=== PATIENT | female | born 1995 | race African-American/Black ===

== ENCOUNTER 2018-12-29 16:20 | Inpatient (IN) | payer OTHER ==
[~2018-12-29] VITALS: Ht 162.6 cm; Wt 58.3 kg
[2018-12-29 18:52] VITALS: BP 120/79; PULSE 72; RESP 18
[2018-12-29] MEDS ORDERED: NACL 0.9% 3 ML SYG IV SCH (19:00)
[2018-12-29 19:01] VITALS: BMI 18.9
[2018-12-29] MEDS: morphine 4 MG/ML VIAL IV PRN ×2 (19:05→21:59)
[2018-12-29 19:37] VITALS: BP 137/66; PULSE 75; RESP 16
[2018-12-29] MEDS: ALBUTEROL/IPRATROPIUM (NEB) 3 ML AMP HHN SCH (20:37)
[2018-12-29] MEDS: SOD CHLORIDE 0.9% 1,000 ML IV SCH (21:58)
[2018-12-29 22:00] VITALS: Ht 162.6 cm; Wt 58.3 kg
[2018-12-29] MEDS: HEPARIN 5,000 UNIT/1 ML VIAL SC SCH (22:04)
--- NOTE | 2018-12-29 22:11 | HP ---
Date/Time of Note Date/Time of Note DATE: 12/29/18 TIME: 22:11 Assessment/Plan VTE Prophylaxis SCD applied (from Ns): Yes Pharmacological prophylaxis: NA/contraindicated Pharm contraindication: low risk/ambulating Assessment/Plan Assessment/Plan 1. Sickle cell crisis -Pain management, IV fluid -Hemoglobin 11, therefore no transfusion needed -Patient reported that she follows up with a greens picker at [place] 2. History of asthma: No sign of exacerbation -Supplemental oxygen and bronchodilators as needed 3. Anemia: See #1 Result Diagram: 12/29/18 1852 12/29/18 1853 Results 24hrs Laboratory Tests Test 12/29/18 18:52 12/29/18 18:53 White Blood Count 4.5 L Red Blood Count 4.18 L Hemoglobin 11.1 L Hematocrit 30.7 L Mean Corpuscular Volume 73.4 L Mean Corpuscular Hemoglobin 26.6 L Mean Corpuscular Hemoglobin Concent 36.2 Red Cell Distribution Width 14.8 H Platelet Count 189 Mean Platelet Volume 9.2 Immature Granulocytes % 0.200 Neutrophils % 50.4 Lymphocytes % 39.6 Monocytes % 7.6 Eosinophils % 2.0 Basophils % 0.2 Nucleated Red Blood Cells % 0.0 Immature Granulocytes # 0.010 Neutrophils # 2.3 Lymphocytes # 1.8 Monocytes # 0.3 Eosinophils # 0.1 Basophils # 0.0 Nucleated Red Blood Cells # 0.0 Sodium Level 141 Potassium Level 3.9 Chloride Level 105 Carbon Dioxide Level 27 Anion Gap 9 Blood Urea Nitrogen 3 L Creatinine 0.48 Est Glomerular Filtrat Rate mL/min > 60 Glucose Level 89 Calcium Level 9.4 Total Bilirubin 1.1 Direct Bilirubin 0.00 Indirect Bilirubin 1.1 Aspartate Amino Transf (AST/SGOT) 24 Alanine Aminotransferase (ALT/SGPT) 18 Alkaline Phosphatase 71 Total Protein 7.3 Albumin 4.1 Globulin 3.20 Albumin/Globulin Ratio 1.28 HPI/ROS Admit Date/Time Admit Date/Time Dec 29, 2018 at 18:08 Hx of Present Illness This is a 23-year-old female with a history of sickle cell disease and asthma who initially presented to outside hospital complaining of generalized body pain. She said the pain is similar to when she has crisis. Pain is generalized and not specific to any part. When I walked into the room, she was talking to her mom on the phone and she looks comfortable. She did however state that she is still having pain. She states she follows up with the hematology at [place]. She was transferred to [facility] for management of sickle cell crisis. PMH/Family/Social Past Medical History Medical History: other (See HPI) Medications Current Medications Sodium Chloride 1,000 ml @ 50 mls/hr Q20H IV ; Start 12/29/18 at 18:37 IV Flush (NS 3 ml) 3 ml PER PROTOCOL IV ; Start 12/29/18 at 19:00 Ondansetron HCl (Zofran Inj) 4 mg Q6H PRN IV NAUSEA/VOMITING; Start 12/29/18 at 19:00 Acetaminophen (Tylenol Tab) 650 mg Q6H PRN PO .PAIN 1-3 OR TEMP; Start 12/29/18 at 19:00 Oxycodone/ Acetaminophen (Percocet (5/ 325)) 1 tab Q6H PRN PO .PAINS 4-6; Start 12/29/18 at 19:00 Morphine Sulfate (morphine) 4 mg Q3H PRN IV .PAIN 7-10 Last administered on 12/29/18at 19:05; Admin Dose 4 MG; Start 12/29/18 at 19:00 Albuterol/ Ipratropium (Duoneb) 3 ml Q2H RESP THERAPY PRN HHN shortness of breath; Start 12/29/18 at 19:00 Albuterol/ Ipratropium (Duoneb) 3 ml Q6HWA RESP THERAPY HHN Last administered on 12/29/18at 20:37; Admin Dose 3 ML; Start 12/29/18 at 20:00 Heparin Sodium (Porcine) (Heparin (5000 Units/1ml)) 5,000 unit Q8 SC ; Start 12/29/18 at 22:00 Coded Allergies: No Known Allergy (Unverified , 12/29/18) Past Surgical History Past Surgical Hx: other (See HPI) Family History Significant Family History: other Social History Alcohol Use: none Drug Use: none Exam/Review of Systems Vital Signs Vitals Vital Signs Date Temp Pulse Resp B/P (MAP) Pulse Ox O2 O2 Flow FiO2 Time Delivery Rate 12/29/18 67 16 99 Nasal 2.0 20:41 Cannula 12/29/18 98.5 137/66 19:37 (89) Exam Constitutional: alert, oriented, well developed Head: normocephalic, atraumatic Eyes: EOMI, PERRL Respiratory: clear to auscultation, normal air movement Cardiovascular: regular rate and rhythm, nl pulses Gastrointestinal: soft Extremities: normal pulses DANIEL BILL MD Dec 29, 2018 22:11
[2018-12-30] MEDS: morphine 4 MG/ML VIAL IV PRN ×7 (01:04→23:10)
[2018-12-30 01:48] VITALS: BP 114/67; PULSE 65; RESP 16
[2018-12-30] MEDS: ACETAMINOPHEN 325 MG TAB PO PRN (04:26)
[2018-12-30] MEDS: HEPARIN 5,000 UNIT/1 ML VIAL SC SCH ×3 (05:58→23:12)
[2018-12-30] MEDS: OXYCODONE/ACETAMINOPHEN (5/325) TAB PO PRN (06:08)
[2018-12-30] MEDS: ALBUTEROL/IPRATROPIUM (NEB) 3 ML AMP HHN SCH ×3 (07:42→21:42)
[2018-12-30 08:29] VITALS: BP 116/66; PULSE 80; RESP 18
[2018-12-30] MEDS: ONDANSETRON 4 MG INJ IV PRN ×2 (09:26→16:15)
[2018-12-30] MEDS: SOD CHLORIDE 0.9% 1,000 ML IV SCH ×3 (12:57→23:10)
[2018-12-30 15:02] VITALS: BP 105/71; PULSE 72; RESP 18
--- NOTE | 2018-12-30 15:08 | PN ---
Date/Time of Note Date/Time of Note DATE: 12/30/18 TIME: 15:04 Assessment/Plan VTE Prophylaxis Risk score (from Ns)>0 risk: 1 SCD applied (from [facility]): Yes Pharmacological prophylaxis: heparin Lines/Catheters IV Catheter Type (from Nrsg): Peripheral IV Assessment/Plan Assessment/Plan 1. Sickle cell crisis, IVF, O2, pain control 2. Asthma: No sign of exacerbation 3. DVT prophylaxis: heparin SQ Result Diagram: 12/30/18 0435 12/30/18 0435 Results 24hrs Laboratory Tests Test 12/29/18 18:52 12/29/18 18:53 12/30/18 04:35 White Blood Count 4.5 L 4.2 L Red Blood Count 4.18 L 3.94 L Hemoglobin 11.1 L 10.3 L Hematocrit 30.7 L 29.0 L Mean Corpuscular Volume 73.4 L 73.6 L Mean Corpuscular Hemoglobin 26.6 L 26.1 L Mean Corpuscular Hemoglobin Concent 36.2 35.5 Red Cell Distribution Width 14.8 H 14.8 H Platelet Count 189 183 Mean Platelet Volume 9.2 9.5 Immature Granulocytes % 0.200 0.200 Neutrophils % 50.4 37.1 L Lymphocytes % 39.6 51.9 H Monocytes % 7.6 8.6 Eosinophils % 2.0 1.7 Basophils % 0.2 0.5 Nucleated Red Blood Cells % 0.0 0.0 Immature Granulocytes # 0.010 0.010 Neutrophils # 2.3 1.6 Lymphocytes # 1.8 2.2 Monocytes # 0.3 0.4 Eosinophils # 0.1 0.1 Basophils # 0.0 0.0 Nucleated Red Blood Cells # 0.0 0.0 Sodium Level 141 142 Potassium Level 3.9 3.6 Chloride Level 105 102 Carbon Dioxide Level 27 29 Anion Gap 9 11 Blood Urea Nitrogen 3 L 4 L Creatinine 0.48 0.50 Est Glomerular Filtrat Rate mL/min > 60 > 60 Glucose Level 89 91 Calcium Level 9.4 8.9 Total Bilirubin 1.1 1.0 Direct Bilirubin 0.00 0.00 Indirect Bilirubin 1.1 1.0 Aspartate Amino Transf (AST/SGOT) 24 16 Alanine Aminotransferase (ALT/SGPT) 18 18 Alkaline Phosphatase 71 57 Total Protein 7.3 6.8 Albumin 4.1 3.9 Globulin 3.20 2.90 Albumin/Globulin Ratio 1.28 1.34 Hemoglobin A1c 4.2 Magnesium Level 1.7 Subjective 24 Hr Interval Summary Free Text/Dictation generalized pain, no shortness of breath Exam/Review of Systems Exam Vitals Vital Signs Date Temp Pulse Resp B/P (MAP) Pulse Ox O2 O2 Flow FiO2 Time Delivery Rate 12/30/18 2.0 14:08 12/30/18 72 16 100 Nasal 14:08 Cannula 12/30/18 98.0 116/66 08:29 (83) Intake and Output 12/29/18 12/29/18 12/30/18 1515:00 23:00 07:00 IntakeIntake Total 830 ml BalanceBalance 830 ml Constitutional: alert, oriented, well developed Psych: no complaints, nl mood/affect Head: normocephalic, atraumatic Eyes: nl conjunctiva, EOMI, nl lids ENMT: nl external ears & nose, nl lips & teeth, nl nasal mucosa & septum Neck: supple, non-tender Respiratory: clear to auscultation, normal air movement; No congested cough, No crackles/rales, No diminished breath sounds, No intercostal retraction, No labored breathing, No respirations, No tactile fremitus, No wheezing, No other Cardiovascular: regular rate and rhythm, nl pulses; No bruits, No diastolic murmur, No edema, No gallop, No irregular rhythm, No jugular venous distention (JVD), No murmurs/extra sounds, No rub, No systolic murmur, No S3, No S4, No other Gastrointestinal: soft, nl liver, spleen, non-tender Musculoskeletal: nl extremities to inspection Extremities: normal pulses; No calf tenderness, No cyanosis, No clubbing, No edema, No pitting pedal edema, No palpable cord, No tenderness, No other Neurological: [employer] II-XII intact, nl mental status, nl speech, nl strength Skin: nl turgor Results Results 24hrs Laboratory Tests Test 12/29/18 18:52 12/29/18 18:53 12/30/18 04:35 White Blood Count 4.5 L 4.2 L Red Blood Count 4.18 L 3.94 L Hemoglobin 11.1 L 10.3 L Hematocrit 30.7 L 29.0 L Mean Corpuscular Volume 73.4 L 73.6 L Mean Corpuscular Hemoglobin 26.6 L 26.1 L Mean Corpuscular Hemoglobin Concent 36.2 35.5 Red Cell Distribution Width 14.8 H 14.8 H Platelet Count 189 183 Mean Platelet Volume 9.2 9.5 Immature Granulocytes % 0.200 0.200 Neutrophils % 50.4 37.1 L Lymphocytes % 39.6 51.9 H Monocytes % 7.6 8.6 Eosinophils % 2.0 1.7 Basophils % 0.2 0.5 Nucleated Red Blood Cells % 0.0 0.0 Immature Granulocytes # 0.010 0.010 Neutrophils # 2.3 1.6 Lymphocytes # 1.8 2.2 Monocytes # 0.3 0.4 Eosinophils # 0.1 0.1 Basophils # 0.0 0.0 Nucleated Red Blood Cells # 0.0 0.0 Sodium Level 141 142 Potassium Level 3.9 3.6 Chloride Level 105 102 Carbon Dioxide Level 27 29 Anion Gap 9 11 Blood Urea Nitrogen 3 L 4 L Creatinine 0.48 0.50 Est Glomerular Filtrat Rate mL/min > 60 > 60 Glucose Level 89 91 Calcium Level 9.4 8.9 Total Bilirubin 1.1 1.0 Direct Bilirubin 0.00 0.00 Indirect Bilirubin 1.1 1.0 Aspartate Amino Transf (AST/SGOT) 24 16 Alanine Aminotransferase (ALT/SGPT) 18 18 Alkaline Phosphatase 71 57 Total Protein 7.3 6.8 Albumin 4.1 3.9 Globulin 3.20 2.90 Albumin/Globulin Ratio 1.28 1.34 Hemoglobin A1c 4.2 Magnesium Level 1.7 Medications Medication Current Medications Sodium Chloride 1,000 ml @ 100 mls/hr Q10H IV Last administered on 12/30/18at 12:57; Admin Dose 100 MLS/HR; Start 12/29/18 at 18:37 IV Flush (NS 3 ml) 3 ml PER PROTOCOL IV ; Start 12/29/18 at 19:00 Ondansetron HCl (Zofran Inj) 4 mg Q6H PRN IV NAUSEA/VOMITING Last administered on 12/30/18 09:26; Admin Dose 4 MG; Start 12/29/18 at 19:00 Acetaminophen (Tylenol Tab) 650 mg Q6H PRN PO .PAIN 1-3 OR TEMP Last ad ministered on 12/30/18 04:26; Admin Dose 650 MG; Start 12/29/18 at 19:00 Oxycodone/ Acetaminophen (Percocet (5/ 325)) 1 tab Q6H PRN PO .PAINS 4-6 Last administered on 12/30/18 06:08; Admin Dose 1 TAB; Start 12/29/18 at 19:00 Morphine Sulfate (morphine) 4 mg Q3H PRN IV .PAIN 7-10 Last administered on 12/30/18 12:57; Admin Dose 4 MG; Start 12/29/18 at 19:00 Albuterol/ Ipratropium (Duoneb) 3 ml Q2H RESP THERAPY PRN HHN shortness of breath; Start 12/29/18 at 19:00 Albuterol/ Ipratropium (Duoneb) 3 ml Q6HWA RESP THERAPY HHN Last administered on 12/30/18 14:00; Admin Dose 3 ML; Start 12/29/18 at 20:00 Heparin Sodium (Porcine) (Heparin (5000 Units/1ml)) 5,000 unit Q8 SC Last administered on 12/30/18 14:26; Admin Dose 5,000 UNIT; Start 12/29/18 at 22:00 YAHAIRA REYNOLDS MD Dec 30, 2018 15:08
[2018-12-30 19:21] VITALS: BP 110/75; PULSE 78; RESP 16
[2018-12-31 01:38] VITALS: BP 127/74; PULSE 74; RESP 16
[2018-12-31] MEDS: morphine 4 MG/ML VIAL IV PRN ×6 (03:16→21:29)
[2018-12-31] MEDS: HEPARIN 5,000 UNIT/1 ML VIAL SC SCH ×3 (06:46→21:45)
[2018-12-31] MEDS: ALBUTEROL/IPRATROPIUM (NEB) 3 ML AMP HHN SCH ×3 (07:31→20:07)
[2018-12-31 07:51] VITALS: BP 98/65; PULSE 86; RESP 17
[2018-12-31] MEDS: SOD CHLORIDE 0.9% 1,000 ML IV SCH (09:27)
[2018-12-31 14:28] VITALS: BP 111/59; PULSE 74; RESP 18
--- NOTE | 2018-12-31 14:59 | PN ---
Date/Time of Note Date/Time of Note DATE: 12/31/18 TIME: 14:58 Assessment/Plan VTE Prophylaxis Risk score (from Ns)>0 risk: 0 SCD applied (from Ns): Yes Pharmacological prophylaxis: heparin Lines/Catheters IV Catheter Type (from Nrsg): Peripheral IV Assessment/Plan Assessment/Plan 1. Sickle cell crisis, IVF, O2, pain control 2. Asthma: No sign of exacerbation 3. DVT prophylaxis: heparin SQ Result Diagram: 12/31/1844712/31/188 Results 24hrs Laboratory Tests Test 12/31/18 04:48 White Blood Count 3.8 L Red Blood Count 3.87 L Hemoglobin 10.2 L Hematocrit 28.2 L Mean Corpuscular Volume 72.9 L Mean Corpuscular Hemoglobin 26.4 L Mean Corpuscular Hemoglobin Concent 36.2 Red Cell Distribution Width 14.9 H Platelet Count 171 Mean Platelet Volume 9.4 Immature Granulocytes % 0.000 L Neutrophils % 42.1 Lymphocytes % 47.3 Monocytes % 8.0 Eosinophils % 2.1 Basophils % 0.5 Nucleated Red Blood Cells % 0.0 Immature Granulocytes # 0.000 Neutrophils # 1.6 Lymphocytes # 1.8 Monocytes # 0.3 Eosinophils # 0.1 Basophils # 0.0 Nucleated Red Blood Cells # 0.0 Sodium Level 142 Potassium Level 3.5 Chloride Level 106 Carbon Dioxide Level 26 Anion Gap 10 Blood Urea Nitrogen 3 L Creatinine 0.54 Est Glomerular Filtrat Rate mL/min > 60 Glucose Level 109 Calcium Level 8.9 Subjective 24 Hr Interval Summary Free Text/Dictation generalized pain Exam/Review of Systems Exam Vitals Vital Signs Date Temp Pulse Resp B/P (MAP) Pulse Ox O2 O2 Flow FiO2 Time Delivery Rate 12/31/18 98.5 74 18 111/59 100 14:28 (76) 12/31/18 2.0 13:41 12/31/18 Nasal 13:41 Cannula 12/30/18 28 21:43 Intake and Output 12/30/18 12/30/18 12/31/18 1515:00 23:00 07:00 IntakeIntake Total 400 ml 1200 ml 1200 ml BalanceBalance 400 ml 1200 ml 1200 ml Constitutional: alert, oriented, well developed Head: normocephalic, atraumatic Eyes: nl conjunctiva, EOMI, nl lids, PERRL ENMT: nl external ears & nose, nl lips & teeth, nl nasal mucosa & septum Neck: supple, non-tender Respiratory: clear to auscultation, normal air movement; No congested cough, No crackles/rales, No diminished breath sounds, No intercostal retraction, No labored breathing, No respirations, No tactile fremitus, No wheezing, No other Cardiovascular: regular rate and rhythm, nl pulses Gastrointestinal: soft, nl liver, spleen, non-tender Musculoskeletal: nl extremities to inspection Extremities: normal pulses; No calf tenderness, No cyanosis, No clubbing, No edema, No pitting pedal edema, No palpable cord, No tenderness, No other Neurological: [employer] II-XII intact, nl mental status, nl speech Results Results 24hrs Laboratory Tests Test 12/31/18 04:48 White Blood Count 3.8 L Red Blood Count 3.87 L Hemoglobin 10.2 L Hematocrit 28.2 L Mean Corpuscular Volume 72.9 L Mean Corpuscular Hemoglobin 26.4 L Mean Corpuscular Hemoglobin Concent 36.2 Red Cell Distribution Width 14.9 H Platelet Count 171 Mean Platelet Volume 9.4 Immature Granulocytes % 0.000 L Neutrophils % 42.1 Lymphocytes % 47.3 Monocytes % 8.0 Eosinophils % 2.1 Basophils % 0.5 Nucleated Red Blood Cells % 0.0 Immature Granulocytes # 0.000 Neutrophils # 1.6 Lymphocytes # 1.8 Monocytes # 0.3 Eosinophils # 0.1 Basophils # 0.0 Nucleated Red Blood Cells # 0.0 Sodium Level 142 Potassium Level 3.5 Chloride Level 106 Carbon Dioxide Level 26 Anion Gap 10 Blood Urea Nitrogen 3 L Creatinine 0.54 Est Glomerular Filtrat Rate mL/min > 60 Glucose Level 109 Calcium Level 8.9 Medications Medication Current Medications Sodium Chloride 1,000 ml @ 100 mls/hr Q10H IV Last administered on 12/31/18at 09:27; Admin Dose 100 MLS/HR; Start 12/29/18 at 18:37 IV Flush (NS 3 ml) 3 ml PER PROTOCOL IV ; Start 12/29/18 at 19:00 Ondansetron HCl (Zofran Inj) 4 mg Q6H PRN IV NAUSEA/VOMITING Last administered on 12/30/18at 16:15; Admin Dose 4 MG; Start 12/29/18 at 19:00 Acetaminophen (Tylenol Tab) 650 mg Q6H PRN PO .PAIN 1-3 OR TEMP Last administered on 12/30/18 04:26; Admin Dose 650 MG; Start 12/29/18 at 19:00 Oxycodone/ Acetaminophen (Percocet (5/ 325)) 1 tab Q6H PRN PO .PAINS 4-6 Last administered on 12/30/18 06:08; Admin Dose 1 TAB; Start 12/29/18 at 19:00 Morphine Sulfate (morphine) 4 mg Q3H PRN IV .PAIN 7-10 Last administered on 12/31/18 14:36; Admin Dose 4 MG; Start 12/29/18 at 19:00 Albuterol/ Ipratropium (Duoneb) 3 ml Q2H RESP THERAPY PRN HHN shortness of breath; Start 12/29/18 at 19:00 Albuterol/ Ipratropium (Duoneb) 3 ml Q6HWA RESP THERAPY HHN Last administered on 12/31/18at 13:41; Admin Dose 3 ML; Start 12/29/18 at 20:00 Heparin Sodium (Porcine) (Heparin (5000 Units/1ml)) 5,000 unit Q8 SC Last administered on 12/31/18 06:46; Admin Dose 5,000 UNIT; Start 12/29/18 at 22:00 YAHAIRA REYNOLDS MD Dec 31, 2018 14:59
[2018-12-31 20:48] VITALS: BP 112/55; PULSE 72; RESP 17
[2019-01-01] MEDS: SOD CHLORIDE 0.9% 1,000 ML IV SCH ×3 (00:50→22:21)
[2019-01-01] MEDS: morphine 4 MG/ML VIAL IV PRN ×7 (02:10→22:22)
[2019-01-01 02:33] VITALS: BP 117/80; PULSE 73; RESP 18
[2019-01-01] MEDS: HEPARIN 5,000 UNIT/1 ML VIAL SC SCH ×3 (06:03→22:24)
[2019-01-01] MEDS: OXYCODONE/ACETAMINOPHEN (5/325) TAB PO PRN (06:07)
[2019-01-01] MEDS: ALBUTEROL/IPRATROPIUM (NEB) 3 ML AMP HHN SCH ×3 (07:43→19:45)
[2019-01-01 07:45] VITALS: BP 92/54; PULSE 77; RESP 19
[2019-01-01] MEDS: ONDANSETRON 4 MG INJ IV PRN (11:47)
[2019-01-01 12:00] VITALS: BP 135/82; PULSE 87; RESP 24
[2019-01-01] MEDS: ALBUTEROL/IPRATROPIUM (NEB) 3 ML AMP HHN PRN (12:06)
[2019-01-01] MEDS ORDERED: AL HYDROX/MG HYDROX/SIMETH 30 ML CUP PO PRN (12:30)
[2019-01-01] MEDS ORDERED: PANTOPRAZOLE (EC) 40 MG TAB PO ONE (12:30)
[2019-01-01 13:42] VITALS: BP 104/58; PULSE 71; RESP 18
--- NOTE | 2019-01-01 14:26 | PN ---
Date/Time of Note Date/Time of Note DATE: 01/01/19 TIME: 14:24 Assessment/Plan VTE Prophylaxis Risk score (from Ns)>0 risk: 1 SCD applied (from Ns): Yes Pharmacological prophylaxis: heparin Lines/Catheters IV Catheter Type (from Nrsg): Peripheral IV Assessment/Plan Assessment/Plan 1. Sickle cell crisis, IVF, O2, pain control 2. Asthma: No sign of exacerbation 3. DVT prophylaxis: heparin SQ 4. GERD, protonix Result Diagram: 01/01/196 12/31/18 0448 Results 24hrs Laboratory Tests Test 01/01/19 04:46 White Blood Count 4.4 L Red Blood Count 4.02 L Hemoglobin 10.4 L Hematocrit 29.3 L Mean Corpuscular Volume 72.9 L Mean Corpuscular Hemoglobin 25.9 L Mean Corpuscular Hemoglobin Concent 35.5 Red Cell Distribution Width 14.9 H Platelet Count 165 Mean Platelet Volume 9.7 Immature Granulocytes % 0.200 Neutrophils % 51.5 Lymphocytes % 38.0 Monocytes % 8.2 Eosinophils % 1.6 Basophils % 0.5 Nucleated Red Blood Cells % 0.0 Immature Granulocytes # 0.010 Neutrophils # 2.3 Lymphocytes # 1.7 Monocytes # 0.4 Eosinophils # 0.1 Basophils # 0.0 Nucleated Red Blood Cells # 0.0 Subjective 24 Hr Interval Summary Free Text/Dictation retrosternal cp after vomiting, improved now Exam/Review of Systems Exam Vitals Vital Signs Date Temp Pulse Resp B/P (MAP) Pulse Ox O2 O2 Flow FiO2 Time Delivery Rate 01/01/19 97.9 71 18 104/58 100 13:42 (73) 01/01/19 2.0 12:06 01/01/19 Nasal 12:06 Cannula 01/01/19 21 07:43 Intake and Output 12/31/18 12/31/18 01/01/19 1515:00 23:00 07:00 IntakeIntake Total 640 ml 500 ml 900 ml BalanceBalance 640 ml 500 ml 900 ml Constitutional: alert, oriented, well developed Head: normocephalic, atraumatic Eyes: nl conjunctiva, EOMI, nl lids, PERRL ENMT: nl external ears & nose, nl lips & teeth, nl nasal mucosa & septum Neck: supple, non-tender Respiratory: clear to auscultation, normal air movement; No congested cough, No crackles/rales, No diminished breath sounds, No intercostal retraction, No labored breathing, No respirations, No tactile fremitus, No wheezing, No other Cardiovascular: regular rate and rhythm, nl pulses; No bruits, No diastolic murmur, No edema, No gallop, No irregular rhythm, No jugular venous distention (JVD), No murmurs/extra sounds, No rub, No systolic murmur, No S3, No S4, No other Gastrointestinal: soft, nl liver, spleen, non-tender Musculoskeletal: nl extremities to inspection Extremities: normal pulses; No calf tenderness, No cyanosis, No clubbing, No edema, No pitting pedal edema, No palpable cord, No tenderness, No other Neurological: SURG RN II-XII intact, nl mental status, nl speech, nl strength Results Results 24hrs Laboratory Tests Test 01/01/19 04:46 White Blood Count 4.4 L Red Blood Count 4.02 L Hemoglobin 10.4 L Hematocrit 29.3 L Mean Corpuscular Volume 72.9 L Mean Corpuscular Hemoglobin 25.9 L Mean Corpuscular Hemoglobin Concent 35.5 Red Cell Distribution Width 14.9 H Platelet Count 165 Mean Platelet Volume 9.7 Immature Granulocytes % 0.200 Neutrophils % 51.5 Lymphocytes % 38.0 Monocytes % 8.2 Eosinophils % 1.6 Basophils % 0.5 Nucleated Red Blood Cells % 0.0 Immature Granulocytes # 0.010 Neutrophils # 2.3 Lymphocytes # 1.7 Monocytes # 0.4 Eosinophils # 0.1 Basophils # 0.0 Nucleated Red Blood Cells # 0.0 Medications Medication Current Medications Sodium Chloride 1,000 ml @ 100 mls/hr Q10H IV Last administered on 01/01/19at 14:16; Admin Dose 100 MLS/HR; Start 12/29/18 at 18:37 IV Flush (NS 3 ml) 3 ml PER PROTOCOL IV ; Start 12/29/18 at 19:00 Ondansetron HCl (Zofran Inj) 4 mg Q6H PRN IV NAUSEA/VOMITING Last administered on 01/01/19at 11:47; Admin Dose 4 MG; Start 12/29/18 at 19:00 Acetaminophen (Tylenol Tab) 650 mg Q6H PRN PO .PAIN 1-3 OR TEMP Last ad ministered on 12/30/18 04:26; Admin Dose 650 MG; Start 12/29/18 at 19:00 Oxycodone/ Acetaminophen (Percocet (5/ 325)) 1 tab Q6H PRN PO .PAINS 4-6 Last administered on 01/01/19 06:07; Admin Dose 1 TAB; Start 12/29/18 at 19:00 Morphine Sulfate (morphine) 4 mg Q3H PRN IV .PAIN 7-10 Last administered on 01/01/19 11:55; Admin Dose 4 MG; Start 12/29/18 at 19:00 Albuterol/ Ipratropium (Duoneb) 3 ml Q2H RESP THERAPY PRN HHN shortness of breath Last administered on 01/01/19 12:06; Admin Dose 3 ML; Start 12/29/18 at 19:00 Albuterol/ Ipratropium (Duoneb) 3 ml Q6HWA RESP THERAPY HHN Last administered on 01/01/19 07:43; Admin Dose 3 ML; Start 12/29/18 at 20:00 Heparin Sodium (Porcine) (Heparin (5000 Units/1ml)) 5,000 unit Q8 SC Last administered on 01/01/19 14:18; Admin Dose 5,000 UNIT; Start 12/29/18 at 22:00 Pantoprazole (Protonix Tab) 40 mg DAILY@06 PO ; Start 01/02/19 at 06:00 Al Hydrox/Mg Hydrox/Simethicone (Mag-Al Plus) 30 ml Q6H PRN PO GASTROINTESTINAL UPSET; Start 01/01/19 at 12:30 YAHAIRA REYNOLDS MD Jan 01, 2019 14:26
[2019-01-01] MEDS: ACETAMINOPHEN 325 MG TAB PO PRN (16:33)
[2019-01-01 20:18] VITALS: BP 114/67; PULSE 97; RESP 20
[2019-01-02] MEDS: morphine 4 MG/ML VIAL IV PRN ×7 (01:31→22:06)
[2019-01-02 01:55] VITALS: BP 112/66; PULSE 77; RESP 18
[2019-01-02] MEDS: PANTOPRAZOLE (EC) 40 MG TAB PO SCH (05:02)
[2019-01-02] MEDS: HEPARIN 5,000 UNIT/1 ML VIAL SC SCH ×3 (05:04→22:16)
[2019-01-02] MEDS: SOD CHLORIDE 0.9% 1,000 ML IV SCH ×2 (07:59→23:50)
[2019-01-02] MEDS: ALBUTEROL/IPRATROPIUM (NEB) 3 ML AMP HHN SCH ×3 (08:04→19:46)
[2019-01-02 08:33] VITALS: BP 123/56; PULSE 75; RESP 18
[2019-01-02] MEDS: ONDANSETRON 4 MG INJ IV PRN (11:00)
[2019-01-02] MEDS: ALBUTEROL/IPRATROPIUM (NEB) 3 ML AMP HHN PRN (11:19)
[2019-01-02] MEDS ORDERED: POTASSIUM CHLORIDE (SR) 20 MEQ TAB PO STA (14:31)
--- NOTE | 2019-01-02 14:34 | PN ---
Date/Time of Note Date/Time of Note DATE: 01/02/19 TIME: 14:32 Assessment/Plan VTE Prophylaxis Risk score (from Ns)>0 risk: 1 SCD applied (from Ns): Yes Pharmacological prophylaxis: heparin Lines/Catheters IV Catheter Type (from Nrsg): Peripheral IV Assessment/Plan Assessment/Plan 1. Sickle cell crisis, IVF, O2, pain control 2. Asthma, neb prn 3. GERD, protonix, zofran prn 4. DVT prophylaxis: heparin SQ Result Diagram: 01/02/19 0435 01/02/19 0435 Results 24hrs Laboratory Tests Test 01/02/19 04:35 White Blood Count 5.0 Red Blood Count 3.91 L Hemoglobin 10.2 L Hematocrit 28.5 L Mean Corpuscular Volume 72.9 L Mean Corpuscular Hemoglobin 26.1 L Mean Corpuscular Hemoglobin Concent 35.8 Red Cell Distribution Width 14.7 H Platelet Count 164 Mean Platelet Volume 10.0 Immature Granulocytes % 0.200 Neutrophils % 54.9 Lymphocytes % 35.4 Monocytes % 7.3 Eosinophils % 1.8 Basophils % 0.4 Nucleated Red Blood Cells % 0.0 Immature Granulocytes # 0.010 Neutrophils # 2.7 Lymphocytes # 1.8 Monocytes # 0.4 Eosinophils # 0.1 Basophils # 0.0 Nucleated Red Blood Cells # 0.0 Sodium Level 142 Potassium Level 3.4 L Chloride Level 103 Carbon Dioxide Level 27 Anion Gap 12 Blood Urea Nitrogen 6 L Creatinine 0.51 Est Glomerular Filtrat Rate mL/min > 60 Glucose Level 100 Calcium Level 8.8 Subjective 24 Hr Interval Summary Free Text/Dictation vomited today. generalized pain Exam/Review of Systems Exam Vitals Vital Signs Date Temp Pulse Resp B/P (MAP) Pulse Ox O2 O2 Flow FiO2 Time Delivery Rate 01/02/19 80 20 100 Simple 6.0 11:22 Mask 01/02/19 97.8 123/56 08:33 (78) 01/02/19 04:40 Intake and Output 01/01/19 01/01/19 01/02/19 1515:00 23:00 07:00 IntakeIntake Total 1320 ml 1200 ml 650 ml BalanceBalance 1320 ml 1200 ml 650 ml Constitutional: alert, oriented, well developed Psych: no complaints, nl mood/affect Eyes: nl conjunctiva, EOMI, nl lids, PERRL ENMT: nl external ears & nose, nl lips & teeth, nl nasal mucosa & septum Neck: supple, non-tender Respiratory: clear to auscultation, normal air movement; No congested cough, No crackles/rales, No diminished breath sounds, No intercostal retraction, No labored breathing, No respirations, No tactile fremitus, No wheezing, No other Cardiovascular: regular rate and rhythm, nl pulses; No bruits, No diastolic murmur, No edema, No gallop, No irregular rhythm, No jugular venous distention (JVD), No murmurs/extra sounds, No rub, No systolic murmur, No S3, No S4, No other Gastrointestinal: soft, nl liver, spleen, non-tender Musculoskeletal: nl extremities to inspection Extremities: normal pulses; No calf tenderness, No cyanosis, No clubbing, No edema, No pitting pedal edema, No palpable cord, No tenderness, No other 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4 Eosinophils # 0.1 Basophils # 0.0 Nucleated Red Blood Cells # 0.0 Sodium Level 142 Potassium Level 3.4 L Chloride Level 103 Carbon Dioxide Level 27 Anion Gap 12 Blood Urea Nitrogen 6 L Creatinine 0.51 Est Glomerular Filtrat Rate mL/min > 60 Glucose Level 100 Calcium Level 8.8 Medications Medication Current Medications Sodium Chloride 1,000 ml @ 100 mls/hr Q10H IV Last administered on 01/02/19at 07:59; Admin Dose 100 MLS/HR; Start 12/29/18 at 18:37 IV Flush (NS 3 ml) 3 ml PER PROTOCOL IV ; Start 12/29/18 at 19:00 Ondansetron HCl (Zofran Inj) 4 mg Q6H PRN IV NAUSEA/VOMITING Last administered on 01/02/19 11:00; Admin Dose 4 MG; Start 12/29/18 at 19:00 Acetaminophen (Tylenol Tab) 650 mg Q6H PRN PO .PAIN 1-3 OR TEMP Last administered on 01/01/19 16:33; Admin Dose 650 MG; Start 12/29/18 at 19:00 Oxycodone/ Acetaminophen (Percocet (5/ 325)) 1 tab Q6H PRN PO .PAINS 4-6 Last administered on 01/01/19 06:07; Admin Dose 1 TAB; Start 12/29/18 at 19:00 Morphine Sulfate (morphine) 4 mg Q3H PRN IV .PAIN 7-10 Last administered on 01/02/19 11:13; Admin Dose 4 MG; Start 12/29/18 at 19:00 Albuterol/ Ipratropium (Duoneb) 3 ml Q2H RESP THERAPY PRN HHN shortness of breath Last administered on 01/02/19 11:19; Admin Dose 3 ML; Start 12/29/18 at 19:00 Albuterol/ Ipratropium (Duoneb) 3 ml Q6HWA RESP THERAPY HHN Last administered on 01/02/19 08:04; Admin Dose 3 ML; Start 12/29/18 at 20:00 Heparin Sodium (Porcine) (Heparin (5000 Units/1ml)) 5,000 unit Q8 SC Last administered on 01/02/19 14:06; Admin Dose 5,000 UNIT; Start 12/29/18 at 22:00 Pantoprazole (Protonix Tab) 40 mg DAILY@06 PO Last administered on 01/02/19 05:02; Admin Dose 40 MG; Start 01/02/19 at 06:00 Al Hydrox/Mg Hydrox/Simethicone (Mag-Al Plus) 30 ml Q6H PRN PO GASTROINTESTINAL UPSET; Start 01/01/19 at 12:30 YAHAIRA REYNOLDS MD Jan 02, 2019 14:34
[2019-01-02 20:56] VITALS: BP 120/58; PULSE 77; RESP 20
[2019-01-03] MEDS: morphine 4 MG/ML VIAL IV PRN ×8 (01:19→22:46)
[2019-01-03 02:16] VITALS: BP 125/61; PULSE 74; RESP 17
[2019-01-03] MEDS: SOD CHLORIDE 0.9% 1,000 ML IV SCH ×3 (03:58→21:12)
[2019-01-03] MEDS: ALBUTEROL/IPRATROPIUM (NEB) 3 ML AMP HHN PRN (04:04)
[2019-01-03] MEDS: PANTOPRAZOLE (EC) 40 MG TAB PO SCH (07:02)
[2019-01-03] MEDS: HEPARIN 5,000 UNIT/1 ML VIAL SC SCH ×3 (07:04→22:53)
[2019-01-03] MEDS: ALBUTEROL/IPRATROPIUM (NEB) 3 ML AMP HHN SCH ×3 (07:45→19:21)
[2019-01-03 07:58] VITALS: BP 97/56; PULSE 78; RESP 20
[2019-01-03 14:27] VITALS: BP 116/55; RESP 20
[2019-01-03] MEDS: ONDANSETRON 4 MG INJ IV PRN (16:25)
--- NOTE | 2019-01-03 16:40 | PN ---
Date/Time of Note Date/Time of Note DATE: 01/03/19 TIME: 16:36 Assessment/Plan VTE Prophylaxis Risk score (from Nsg)>0 risk: 1 SCD applied (from Ns): Yes Pharmacological prophylaxis: heparin Lines/Catheters IV Catheter Type (from Nrsg): Peripheral IV Assessment/Plan Assessment/Plan 1. Sickle cell crisis, IVF, O2, pain control 2. Asthma, neb prn 3. GERD, protonix, zofran prn 4. Shortness of breath, CT scan to r/o aspiration from recent vomiting and PE, O2, start zosyn 5. DVT prophylaxis: heparin SQ Result Diagram: 01/02/19 0435 01/03/19 0444 Results 24hrs Laboratory Tests Test 01/03/19 04:44 Sodium Level 141 Potassium Level 3.7 Chloride Level 107 Carbon Dioxide Level 27 Anion Gap 7 Blood Urea Nitrogen 4 L Creatinine 0.55 Est Glomerular Filtrat Rate mL/min > 60 Glucose Level 99 Calcium Level 9.3 Subjective 24 Hr Interval Summary Free Text/Dictation shortness of breath, no cough Exam/Review of Systems Exam Vitals Vital Signs Date Temp Pulse Resp B/P (MAP) Pulse Ox O2 O2 Flow FiO2 Time Delivery Rate 01/03/19 97.8 20 116/55 96 Nasal 5.0 14:27 (75) Cannula 01/03/19 66 36 13:58 Intake and Output 01/02/19 01/02/19 01/03/19 1515:00 23:00 07:00 IntakeIntake Total 740 ml 1180 ml 400 ml OutputOutput Total 50 ml BalanceBalance 690 ml 1180 ml 400 ml Constitutional: alert, oriented, well developed Psych: anxiety Head: normocephalic, atraumatic Eyes: nl conjunctiva, EOMI, nl lids ENMT: nl external ears & nose, nl lips & teeth, nl nasal mucosa & septum Respiratory: other (rhonchi) Cardiovascular: regular rate and rhythm, nl pulses; No bruits, No diastolic murmur, No edema, No gallop, No irregular rhythm, No jugular venous distention (JVD), No murmurs/extra sounds, No rub, No systolic murmur, No S3, No S4, No other Gastrointestinal: soft, nl liver, spleen, non-tender Musculoskeletal: nl extremities to inspection Extremities: normal pulses; No calf tenderness, No cyanosis, No clubbing, No edema, No pitting pedal edema, No palpable cord, No tenderness, No other 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, nl mental status, nl speech, nl strength Results Results 24hrs Laboratory Tests Test 01/03/19 04:44 Sodium Level 141 Potassium Level 3.7 Chloride Level 107 Carbon Dioxide Level 27 Anion Gap 7 Blood Urea Nitrogen 4 L Creatinine 0.55 Est Glomerular Filtrat Rate mL/min > 60 Glucose Level 99 Calcium Level 9.3 Medications Medication Current Medications Sodium Chloride 1,000 ml @ 100 mls/hr Q10H IV Last administered on 01/03/19 11:30; Admin Dose 100 MLS/HR; Start 12/29/18 at 18:37 IV Flush (NS 3 ml) 3 ml PER PROTOCOL IV ; Start 12/29/18 at 19:00 Ondansetron HCl (Zofran Inj) 4 mg Q6H PRN IV NAUSEA/VOMITING Last administered on 01/03/19 16:25; Admin Dose 4 MG; Start 12/29/18 at 19:00 Acetaminophen (Tylenol Tab) 650 mg Q6H PRN PO .PAIN 1-3 OR TEMP Last administered on 01/01/19 16:33; Admin Dose 650 MG; Start 12/29/18 at 19:00 Oxycodone/ Acetaminophen (Percocet (5/ 325)) 1 tab Q6H PRN PO .PAINS 4-6 Last administered on 01/01/19 06:07; Admin Dose 1 TAB; Start 12/29/18 at 19:00 Morphine Sulfate (morphine) 4 mg Q3H PRN IV .PAIN 7-10 Last administered on 01/03/19 16:15; Admin Dose 4 MG; Start 12/29/18 at 19:00 Albuterol/ Ipratropium (Duoneb) 3 ml Q2H RESP THERAPY PRN HHN shortness of breath Last administered on 01/03/19 04:04; Admin Dose 3 ML; Start 12/29/18 at 19:00 Albuterol/ Ipratropium (Duoneb) 3 ml Q6HWA RESP THERAPY HHN Last administered on 01/03/19 13:57; Admin Dose 3 ML; Start 12/29/18 at 20:00 Heparin Sodium (Porcine) (Heparin (5000 Units/1ml)) 5,000 unit Q8 SC Last administered on 01/03/19at 14:39; Admin Dose 5,000 UNIT; Start 12/29/18 at 22:00 Pantoprazole (Protonix Tab) 40 mg DAILY@06 PO Last administered on 01/03/19at 07:02; Admin Dose 40 MG; Start 01/02/19 at 06:00 Al Hydrox/Mg Hydrox/Simethicone (Mag-Al Plus) 30 ml Q6H PRN PO GASTROINTESTINAL UPSET; Start 01/01/19 at 12:30 YAHAIRA REYNOLDS MD Jan 03, 2019 16:39
[2019-01-03] MEDS ORDERED: IOHEXOL 100 ML ONE (17:38)
[2019-01-03] MEDS ORDERED: SOD CHLORIDE 0.9% 100 ML ONE (17:38)
[2019-01-03] MEDS: PIPER-TAZO 3.375 GM IV (PMX) 100 ML IVPB SCH ×2 (18:13→22:46)
[2019-01-03 19:20] VITALS: BP 118/76; PULSE 100; RESP 20
[2019-01-04] MEDS: morphine 4 MG/ML VIAL IV PRN ×4 (01:36→10:58)
[2019-01-04] MEDS ORDERED: DIPHENHYDRAMINE 50 MG INJ IV ONE (02:00)
[2019-01-04] MEDS: PIPER-TAZO 3.375 GM IV (PMX) 100 ML IVPB SCH ×3 (05:05→22:14)
[2019-01-04] MEDS: HEPARIN 5,000 UNIT/1 ML VIAL SC SCH ×3 (05:13→22:17)
[2019-01-04] MEDS: PANTOPRAZOLE (EC) 40 MG TAB PO SCH (06:34)
[2019-01-04] MEDS: ALBUTEROL/IPRATROPIUM (NEB) 3 ML AMP HHN SCH ×3 (07:28→19:50)
[2019-01-04 08:05] VITALS: BP 104/58; PULSE 87; RESP 16
--- NOTE | 2019-01-04 11:08 | PN ---
Date/Time of Note Date/Time of Note DATE: 01/04/19 TIME: 11:05 Assessment/Plan VTE Prophylaxis Risk score (from Nsg)>0 risk: 0 SCD applied (from Ns): Yes SCD contraindicated: low risk/ambulating Pharmacological prophylaxis: heparin Lines/Catheters IV Catheter Type (from Nrsg): Peripheral IV Assessment/Plan Problems: (1) Sickle cell anemia with pain Status: Chronic Comment: Her pain crisis is not being well managed were having to have the nurses come in frequently to give as needed shots. I do believe that the transition to SEWING MACHINE MAINTENANCE MECHANIC would actually be in the patient's best interest and will do that. In addition can have pain management consult for her. (2) Asthma, mild intermittent Status: Chronic Comment: Stable and doing well at this time. Qualifiers: Asthma complication type: uncomplicated Qualified Codes: J45.20 - Mild intermittent asthma, uncomplicated (3) Gastroesophageal reflux disease Status: Chronic Comment: Adequate control. Qualifiers: Esophagitis presence: without esophagitis Qualified Codes: K21.9 - Gastro- esophageal reflux disease without esophagitis Result Diagram: 01/04/19 0451 01/04/19 0451 Results 24hrs Laboratory Tests Test 01/04/19 04:51 White Blood Count 5.4 Red Blood Count 3.91 L Hemoglobin 10.3 L Hematocrit 28.5 L Mean Corpuscular Volume 72.9 L Mean Corpuscular Hemoglobin 26.3 L Mean Corpuscular Hemoglobin Concent 36.1 Red Cell Distribution Width 14.6 H Platelet Count 144 Mean Platelet Volume 10.0 Immature Granulocytes % 0.400 Neutrophils % 73.7 Lymphocytes % 17.3 Monocytes % 7.1 Eosinophils % 1.3 Basophils % 0.2 Nucleated Red Blood Cells % 0.0 Immature Granulocytes # 0.020 Neutrophils # 4.0 Lymphocytes # 0.9 Monocytes # 0.4 Eosinophils # 0.1 Basophils # 0.0 Nucleated Red Blood Cells # 0.0 Sodium Level 142 Potassium Level 3.9 Chloride Level 107 Carbon Dioxide Level 27 Anion Gap 8 Blood Urea Nitrogen 4 L Creatinine 0.59 Est Glomerular Filtrat Rate mL/min > 60 Glucose Level 88 Calcium Level 9.1 Subjective 24 Hr Interval Summary Free Text/Dictation Patient reports she is still having significant pain which is localized along the spine and legs. But is also diffuse. She reports with the pain analgesia or giving now she is running between 8 and 10 without significant relief. Historically she had actually been using SEWING MACHINE MAINTENANCE MECHANIC pumps when admitted for pain crises over at [place] per her report. Constitutional: no complaints (Denies fevers chills or sweats) Respiratory: no complaints (No cough no shortness of breath) Cardiovascular: no complaints Gastrointestinal: no complaints Exam/Review of Systems Exam Vitals Vital Signs Date Temp Pulse Resp B/P (MAP) Pulse Ox O2 O2 Flow FiO2 Time Delivery Rate 01/04/19 97.3 87 16 104/58 100 Room Air 08:05 (73) 01/04/19 2.0 07:28 01/03/19 36 13:58 Intake and Output 01/03/19 01/03/19 01/04/19 1515:00 23:00 07:00 IntakeIntake Total 1400 ml 1000 ml 850 ml BalanceBalance 1400 ml 1000 ml 850 ml Exam [place] female in some physical discomfort Constitutional: alert, oriented Neck: supple, non-tender Respiratory: clear to auscultation, normal air movement Cardiovascular: regular rate and rhythm, nl pulses Gastrointestinal: soft, nl liver, spleen, non-tender Results Results 24hrs Laboratory Tests Test 01/04/19 04:51 White Blood Count 5.4 Red Blood Count 3.91 L Hemoglobin 10.3 L Hematocrit 28.5 L Mean Corpuscular Volume 72.9 L Mean Corpuscular Hemoglobin 26.3 L Mean Corpuscular Hemoglobin Concent 36.1 Red Cell Distribution Width 14.6 H Platelet Count 144 Mean Platelet Volume 10.0 Immature Granulocytes % 0.400 Neutrophils % 73.7 Lymphocytes % 17.3 Monocytes % 7.1 Eosinophils % 1.3 Basophils % 0.2 Nucleated Red Blood Cells % 0.0 Immature Granulocytes # 0.020 Neutrophils # 4.0 Lymphocytes # 0.9 Monocytes # 0.4 Eosinophils # 0.1 Basophils # 0.0 Nucleated Red Blood Cells # 0.0 Sodium Level 142 Potassium Level 3.9 Chloride Level 107 Carbon Dioxide Level 27 Anion Gap 8 Blood Urea Nitrogen 4 L Creatinine 0.59 Est Glomerular Filtrat Rate mL/min > 60 Glucose Level 88 Calcium Level 9.1 Medications Medication Current Medications Sodium Chloride 1,000 ml @ 100 mls/hr Q10H IV Last administered on 01/03/19at 21:12; Admin Dose 100 MLS/HR; Start 12/29/18 at 18:37 IV Flush (NS 3 ml) 3 ml PER PROTOCOL IV ; Start 12/29/18 at 19:00 Ondansetron HCl (Zofran Inj) 4 mg Q6H PRN IV NAUSEA/VOMITING Last administered on 01/03/19 16:25; Admin Dose 4 MG; Start 12/29/18 at 19:00 Acetaminophen (Tylenol Tab) 650 mg Q6H PRN PO .PAIN 1-3 OR TEMP Last administered on 01/01/19 16:33; Admin Dose 650 MG; Start 12/29/18 at 19:00 Oxycodone/ Acetaminophen (Percocet (5/ 325)) 1 tab Q6H PRN PO .PAINS 4-6 Last administered on 01/01/19 06:07; Admin Dose 1 TAB; Start 12/29/18 at 19:00 Morphine Sulfate (morphine) 4 mg Q3H PRN IV .PAIN 7-10 Last administered on 01/04/19 10:58; Admin Dose 4 MG; Start 12/29/18 at 19:00 Albuterol/ Ipratropium (Duoneb) 3 ml Q2H RESP THERAPY PRN HHN shortness of breath Last administered on 01/03/19 04:04; Admin Dose 3 ML; Start 12/29/18 at 19:00 Albuterol/ Ipratropium (Duoneb) 3 ml Q6HWA RESP THERAPY HHN Last administered on 01/04/19 07:28; Admin Dose 3 ML; Start 12/29/18 at 20:00 Heparin Sodium (Porcine) (Heparin (5000 Units/1ml)) 5,000 unit Q8 SC Last administered on 01/04/19 05:13; Admin Dose 5,000 UNIT; Start 12/29/18 at 22:00 Pantoprazole (Protonix Tab) 40 mg DAILY@06 PO Last administered on 01/04/19 06:34; Admin Dose 40 MG; Start 01/02/19 at 06:00 Al Hydrox/Mg Hydrox/Simethicone (Mag-Al Plus) 30 ml Q6H PRN PO GASTROINTESTINAL UPSET; Start 01/01/19 at 12:30 Piperacillin Sod/ Tazobactam Sod 100 ml @ 200 mls/hr Q8 IVPB Last administered on 01/04/19 05:05; Admin Dose 200 MLS/HR; Start 01/03/19 at 17:00 IGNACIO JOHNSON MD Jan 04, 2019 11:08
[2019-01-04] MEDS ORDERED: morphine 1 MG/ML 30 ML (PCA) IV SCH (11:30)
[2019-01-04] MEDS: SOD CHLORIDE 0.9% 1,000 ML IV SCH ×2 (12:11→18:02)
[2019-01-04] MEDS: morphine 1 MG/ML 30 ML (PCA) IV SCH (12:22)
[2019-01-04] MEDS: ONDANSETRON 4 MG INJ IV PRN (12:27)
[2019-01-04] MEDS ORDERED: MAGNESIUM CITRATE 300 ML BTL PO ONE (12:30)
[2019-01-04 12:34] VITALS: BP 111/78; PULSE 84; RESP 24
[2019-01-04 14:28] VITALS: BP 115/65; PULSE 81; RESP 18
[2019-01-04 20:30] VITALS: BP 117/60; PULSE 88; RESP 18
[2019-01-04 20:42] VITALS: BP 142/75; PULSE 72; RESP 18
[2019-01-05] MEDS: morphine 1 MG/ML 30 ML (PCA) IV SCH ×2 (00:56→13:31)
[2019-01-05 01:15] VITALS: BP 122/60; PULSE 86; RESP 19
[2019-01-05] MEDS ORDERED: DIPHENHYDRAMINE 50 MG INJ IV ONE ×2 (01:30→23:00)
[2019-01-05] MEDS ORDERED: POLYETHYLENE GLYCOL 17 GM PACKET PO PRN (03:30)
[2019-01-05] MEDS: DOCUSATE SODIUM 100 MG CAP PO SCH ×2 (03:43→21:32)
[2019-01-05] MEDS: POLYETHYLENE GLYCOL 17 GM PACKET PO SCH (03:43)
[2019-01-05] MEDS: SOD CHLORIDE 0.9% 1,000 ML IV SCH ×2 (03:44→15:19)
[2019-01-05] MEDS: PANTOPRAZOLE (EC) 40 MG TAB PO SCH (05:15)
[2019-01-05] MEDS: PIPER-TAZO 3.375 GM IV (PMX) 100 ML IVPB SCH ×3 (05:15→21:32)
[2019-01-05] MEDS: HEPARIN 5,000 UNIT/1 ML VIAL SC SCH ×3 (05:26→21:38)
[2019-01-05] MEDS: ALBUTEROL/IPRATROPIUM (NEB) 3 ML AMP HHN PRN (05:28)
[2019-01-05 07:42] VITALS: BP 102/58; PULSE 85; RESP 18
[2019-01-05] MEDS: ALBUTEROL/IPRATROPIUM (NEB) 3 ML AMP HHN SCH ×3 (08:56→20:02)
[2019-01-05] MEDS ORDERED: DOCUSATE SODIUM 100 MG CAP PO SCH (09:00)
--- NOTE | 2019-01-05 09:09 | CONS ---
Assessment/Plan Assessment/Plan Assessment/Plan (Daily) 23 year old lady with SS with accelerated crisis in the last three years Typical onset of crisis beginning 2 days ago. Hydroxyurea Recently lost PMD secondary to losing health insurance. Agree with adding REHABILITATION SERVICES COORDINATOR to regimen,fluids early case management involvement secondary to insurance loss in high risk patient Consultation Date/Type/Reason Admit Date/Time Dec 29, 2018 at 18:08 Date/Time of Note DATE: 01/05/19 TIME: 08:59 Hx of Present Illness Brieff note. 23 yo female with history of SS with typical onset of pain in both arms legs and back. She denies atypical joint pains, neg n,v,f, chills freq dysuria. No past history of osteo or kira or splenectomy... has had accelerated episodes over the last two years. Past Medical History Medical History: other (See HPI) Medications Current Medications Sodium Chloride 1,000 ml @ 100 mls/hr Q10H IV Last administered on 01/05/19 03:44; Admin Dose 100 MLS/HR; Start 12/29/18 at 18:37 IV Flush (NS 3 ml) 3 ml PER PROTOCOL IV ; Start 12/29/18 at 19:00 Ondansetron HCl (Zofran Inj) 4 mg Q6H PRN IV NAUSEA/VOMITING Last administered on 01/04/19 12:27; Admin Dose 4 MG; Start 12/29/18 at 19:00 Acetaminophen (Tylenol Tab) 650 mg Q6H PRN PO .PAIN 1-3 OR TEMP Last administered on 01/01/19 16:33; Admin Dose 650 MG; Start 12/29/18 at 19:00 Oxycodone/ Acetaminophen (Percocet (5/ 325)) 1 tab Q6H PRN PO .PAINS 4-6 Last administered on 01/01/19 06:07; Admin Dose 1 TAB; Start 12/29/18 at 19:00 Albuterol/ Ipratropium (Duoneb) 3 ml Q2H RESP THERAPY PRN HHN shortness of breath Last administered on 01/05/19 05:28; Admin Dose 3 ML; Start 12/29/18 at 19:00 Albuterol/ Ipratropium (Duoneb) 3 ml Q6HWA RESP THERAPY HHN Last administered on 01/05/19 08:56; Admin Dose 3 ML; Start 12/29/18 at 20:00 Heparin Sodium (Porcine) (Heparin (5000 Units/1ml)) 5,000 unit Q8 SC Last administered on 01/05/19 05:26; Admin Dose 5,000 UNIT; Start 12/29/18 at 22:00 Pantoprazole (Protonix Tab) 40 mg DAILY@06 PO Last administered on 01/05/19 05:15; Admin Dose 40 MG; Start 01/02/19 at 06:00 Al Hydrox/Mg Hydrox/Simethicone (Mag-Al Plus) 30 ml Q6H PRN PO GASTROINTESTINAL UPSET; Start 01/01/19 at 12:30 Piperacillin Sod/ Tazobactam Sod 100 ml @ 200 mls/hr Q8 IVPB Last administered on 01/05/19 05:15; Admin Dose 200 MLS/HR; Start 01/03/19 at 17:00 Morphine Sulfate (morphine) 2 MG/HR CONTINUOUS RATE 1... Q4PCA IV Last administered on 01/05/19 00:56; Admin Dose 30 MG; Start 01/04/19 at 12:00 Docusate Sodium (Colace) 100 mg BID PO Last administered on 01/05/19 03:43; Admin Dose 100 MG; Start 01/05/19 at 03:28 Polyethylene Glycol (Miralax) 17 gm DAILY PO Last administered on 01/05/19 03:43; Admin Dose 17 GM; Start 01/05/19 at 03:28 Allergies: Coded Allergies: No Known Allergy (Unverified , 12/29/18) Past Surgical History Past Surgical Hx: other (See HPI) Family History Significant Family History: other (mother with SS) Social History Alcohol Use: none Smoking Status: Never smoker Drug Use: none Exam/Review of Systems Exam Vitals Vital Signs Date Temp Pulse Resp B/P (MAP) Pulse Ox O2 O2 Flow FiO2 Time Delivery Rate 01/05/19 98.7 85 18 102/58 100 Room Air 07:42 (73) 01/05/19 4.0 05:28 01/03/19 36 13:58 Intake and Output 01/04/19 01/04/19 01/05/19 1515:00 23:00 07:00 IntakeIntake Total 850 ml 1640 ml 1400 ml OutputOutput Total 800 ml BalanceBalance 850 ml 840 ml 1400 ml Constitutional: alert, oriented, well developed, distress Psych: anxiety Head: normocephalic, atraumatic; No lacerations, No hematomas, No other Eyes: nl conjunctiva, EOMI, nl lids, nl sclera, PERRL ENMT: No nl external ears & nose, No nl lips & teeth, No nl nasal mucosa & septum, No mucosa pink and moist, No intubated, No tympanic membranes, No other Neck: supple, non-tender; No jvd, No bruits, No masses, No thyromegaly, No nuchal rigidity, No other Cardiovascular: regular rate and rhythm, nl pulses; No bruits, No diastolic murmur, No edema, No gallop, No irregular rhythm, No jugular venous distention (JVD), No murmurs/extra sounds, No rub, No systolic murmur, No S3, No S4, No other Gastrointestinal: soft, nl liver, spleen, non-tender; No ascites, No bowel sounds, No distended, No firm, No hepatomegaly, No mass, No rebound or guarding, No splenomegaly, No surgical scars, No tender, No other Musculoskeletal: nl extremities to inspection, nl gait and stance; No joint tenderness, No muscle tone, No muscle weakness, No range of motion, No spine non-tender, No swelling, No other Skin: nl turgor; No rash or lesions, No diaphoresis, No ecchymosis, No laceration, No punctu re, No other Lymph: No nl lymph nodes, No enlarged, No nontender, No other Results Result Diagram: 01/04/19 04501/04/19 0451 Medications Medication Current Medications Sodium Chloride 1,000 ml @ 100 mls/hr Q10H IV Last administered on 01/05/19at 03:44; Admin Dose 100 MLS/HR; Start 12/29/18 at 18:37 IV Flush (NS 3 ml) 3 ml PER PROTOCOL IV ; Start 12/29/18 at 19:00 Ondansetron HCl (Zofran Inj) 4 mg Q6H PRN IV NAUSEA/VOMITING Last administered on 01/04/19at 12:27; Admin Dose 4 MG; Start 12/29/18 at 19:00 Acetaminophen (Tylenol Tab) 650 mg Q6H PRN PO .PAIN 1-3 OR TEMP Last administered on 01/01/19 16:33; Admin Dose 650 MG; Start 12/29/18 at 19:00 Oxycodone/ Acetaminophen (Percocet (5/ 325)) 1 tab Q6H PRN PO .PAINS 4-6 Last administered on 01/01/19 06:07; Admin Dose 1 TAB; Start 12/29/18 at 19:00 Albuterol/ Ipratropium (Duoneb) 3 ml Q2H RESP THERAPY PRN HHN shortness of breath Last administered on 01/05/19 05:28; Admin Dose 3 ML; Start 12/29/18 at 19:00 Albuterol/ Ipratropium (Duoneb) 3 ml Q6HWA RESP THERAPY HHN Last administered on 01/05/19 08:56; Admin Dose 3 ML; Start 12/29/18 at 20:00 Heparin Sodium (Porcine) (Heparin (5000 Units/1ml)) 5,000 unit Q8 SC Last administered on 01/05/19 05:26; Admin Dose 5,000 UNIT; Start 12/29/18 at 22:00 Pantoprazole (Protonix Tab) 40 mg DAILY@06 PO Last administered on 01/05/19 05:15; Admin Dose 40 MG; Start 01/02/19 at 06:00 Al Hydrox/Mg Hydrox/Simethicone (Mag-Al Plus) 30 ml Q6H PRN PO GASTROINTESTINAL UPSET; Start 01/01/19 at 12:30 Piperacillin Sod/ Tazobactam Sod 100 ml @ 200 mls/hr Q8 IVPB Last administered on 01/05/19 05:15; Admin Dose 200 MLS/HR; Start 01/03/19 at 17:00 Morphine Sulfate (morphine) 2 MG/HR CONTINUOUS RATE 1... Q4PCA IV Last administered on 01/05/19 00:56; Admin Dose 30 MG; Start 01/04/19 at 12:00 Docusate Sodium (Colace) 100 mg BID PO Last administered on 01/05/19 03:43; Admin Dose 100 MG; Start 01/05/19 at 03:28 Polyethylene Glycol (Miralax) 17 gm DAILY PO Last administered on 3/24/19at 03:43; Admin Dose 17 GM; Start 01/05/19 at 03:28 KIRSTY KELLEY Jan 05, 2019 09:09
--- NOTE | 2019-01-05 09:56 | PN ---
Date/Time of Note Date/Time of Note DATE: 01/05/19 TIME: 09:54 Assessment/Plan VTE Prophylaxis Risk score (from Nsg)>0 risk: 1 SCD applied (from Ns): Yes Pharmacological prophylaxis: heparin Lines/Catheters IV Catheter Type (from Nrsg): Saline Lock Assessment/Plan Problems: (1) Sickle cell anemia with pain Status: Chronic Comment: Appreciate input from pain capacity management specialist. Can add in low-dose Gray 2 selective NSAID to try and assist. Hopefully this will help us turn the corner and get her toward home. Will ask case management to assist to make sure that about her insurance that we do not have continued disruption in her medical relationships and care (2) Asthma, mild intermittent Status: Chronic Comment: Presently well controlled and compensated Qualifiers: Asthma complication type: uncomplicated Qualified Codes: J45.20 - Mild intermittent asthma, uncomplicated (3) Gastroesophageal reflux disease Status: Chronic Comment: Adequately controlled Qualifiers: Esophagitis presence: without esophagitis Qualified Codes: K21.9 - Gastro- esophageal reflux disease without esophagitis Result Diagram: 01/04/19 0451 01/04/19 0451 Subjective 24 Hr Interval Summary Free Text/Dictation Patient reports that her pain control using PROTECTION SPECIALIST is improved. However she is having a fair amount of muscle spasms. Constitutional: no complaints (No fevers chills or sweats) Respiratory: no complaints Cardiovascular: no complaints Gastrointestinal: no complaints Exam/Review of Systems Exam Vitals Vital Signs Date Temp Pulse Resp B/P (MAP) Pulse Ox O2 O2 Flow FiO2 Time Delivery Rate 01/05/19 78 18 100 Nasal 4.0 09:07 Cannula 01/05/19 98.7 102/58 07:42 (73) 01/03/19 36 13:58 Intake and Output 01/04/19 01/04/19 01/05/19 1515:00 23:00 07:00 IntakeIntake Total 850 ml 1640 ml 1400 ml OutputOutput Total 800 ml BalanceBalance 850 ml 840 ml 1400 ml Constitutional: alert, oriented Respiratory: clear to auscultation, normal air movement Cardiovascular: regular rate and rhythm, nl pulses Medications Medication Current Medications Sodium Chloride 1,000 ml @ 100 mls/hr Q10H IV Last administered on 01/05/19at 03:44; Admin Dose 100 MLS/HR; Start 12/29/18 at 18:37 IV Flush (NS 3 ml) 3 ml PER PROTOCOL IV ; Start 12/29/18 at 19:00 Ondansetron HCl (Zofran Inj) 4 mg Q6H PRN IV NAUSEA/VOMITING Last administered on 01/04/19 12:27; Admin Dose 4 MG; Start 12/29/18 at 19:00 Acetaminophen (Tylenol Tab) 650 mg Q6H PRN PO .PAIN 1-3 OR TEMP Last administered on 01/01/19 16:33; Admin Dose 650 MG; Start 12/29/18 at 19:00 Oxycodone/ Acetaminophen (Percocet (5/ 325)) 1 tab Q6H PRN PO .PAINS 4-6 Last administered on 01/01/19 06:07; Admin Dose 1 TAB; Start 12/29/18 at 19:00 Albuterol/ Ipratropium (Duoneb) 3 ml Q2H RESP THERAPY PRN HHN shortness of breath Last administered on 01/05/19 05:28; Admin Dose 3 ML; Start 12/29/18 at 19:00 Albuterol/ Ipratropium (Duoneb) 3 ml Q6HWA RESP THERAPY HHN Last administered on 01/05/19 08:56; Admin Dose 3 ML; Start 12/29/18 at 20:00 Heparin Sodium (Porcine) (Heparin (5000 Units/1ml)) 5,000 unit Q8 SC Last administered on 01/05/19 05:26; Admin Dose 5,000 UNIT; Start 12/29/18 at 22:00 Pantoprazole (Protonix Tab) 40 mg DAILY@06 PO Last administered on 01/05/19 05:15; Admin Dose 40 MG; Start 01/02/19 at 06:00 Al Hydrox/Mg Hydrox/Simethicone (Mag-Al Plus) 30 ml Q6H PRN PO GASTROINTESTINAL UPSET; Start 01/01/19 at 12:30 Piperacillin Sod/ Tazobactam Sod 100 ml @ 200 mls/hr Q8 IVPB Last administered on 01/05/19 05:15; Admin Dose 200 MLS/HR; Start 01/03/19 at 17:00 Morphine Sulfate (morphine) 2 MG/HR CONTINUOUS RATE 1... Q4PCA IV Last administered on 3/24/19at 00:56; Admin Dose 30 MG; Start 01/04/19 at 12:00 Docusate Sodium (Colace) 100 mg BID PO Last administered on 01/05/19at 03:43; Admin Dose 100 MG; Start 01/05/19 at 03:28 Polyethylene Glycol (Miralax) 17 gm DAILY PO Last administered on 01/05/19at 03:43; Admin Dose 17 GM; Start 01/05/19 at 03:28 IGNACIO JOHNSON MD Jan 05, 2019 09:55
[2019-01-05] MEDS: CELECOXIB 100 MG CAP PO SCH ×2 (11:03→21:32)
[2019-01-05 13:50] VITALS: BP 119/56; PULSE 85; RESP 18
[2019-01-05] MEDS: ACETAMINOPHEN 325 MG TAB PO PRN (16:16)
[2019-01-05 19:28] VITALS: BP 121/73; PULSE 62; RESP 16
[2019-01-05] MEDS: ONDANSETRON 4 MG INJ IV PRN (21:32)
[2019-01-06 01:27] VITALS: BP 114/62; PULSE 81; RESP 16
[2019-01-06] MEDS: SOD CHLORIDE 0.9% 1,000 ML IV SCH ×3 (01:41→21:58)
[2019-01-06] MEDS: morphine 1 MG/ML 30 ML (PCA) IV SCH ×2 (01:57→12:00)
[2019-01-06] MEDS: PIPER-TAZO 3.375 GM IV (PMX) 100 ML IVPB SCH ×3 (06:39→21:08)
[2019-01-06] MEDS: PANTOPRAZOLE (EC) 40 MG TAB PO SCH (06:40)
[2019-01-06] MEDS: HEPARIN 5,000 UNIT/1 ML VIAL SC SCH (06:44)
[2019-01-06] MEDS: ALBUTEROL/IPRATROPIUM (NEB) 3 ML AMP HHN SCH ×3 (07:20→20:08)
[2019-01-06 07:46] VITALS: BP 112/65; PULSE 92; RESP 18
[2019-01-06] MEDS: POLYETHYLENE GLYCOL 17 GM PACKET PO SCH (08:51)
[2019-01-06] MEDS: DOCUSATE SODIUM 100 MG CAP PO SCH ×2 (08:53→21:08)
[2019-01-06] MEDS: CELECOXIB 100 MG CAP PO SCH ×2 (08:53→21:08)
[2019-01-06] MEDS: ONDANSETRON 4 MG INJ IV PRN (11:58)
[2019-01-06 13:28] VITALS: BP 116/65; PULSE 76; RESP 18
--- NOTE | 2019-01-06 14:23 | PN ---
Date/Time of Note Date/Time of Note DATE: 01/06/19 TIME: 14:22 Assessment/Plan VTE Prophylaxis Risk score (from Nsg)>0 risk: 1 SCD applied (from Nsg): Yes Pharmacological prophylaxis: NA/contraindicated Pharm contraindication: low risk/ambulating Lines/Catheters IV Catheter Type (from Nrsg): Peripheral IV Assessment/Plan Hospital Course SUBJECTIVE: Lying in bed, on FULL TIME STAFF INTERPRETER morphine, still complaining of lots of pain all over, complaining of nausea/vomiting. OBJECTIVE: Vital signs-see below PHYSICAL EXAM: Constitutional: AA female, lying in bed, no acute distress. Psych: nl mood/affect, no complaints Head: atraumatic, normocephalic Eyes: nl conjunctiva, nl sclera ENMT: mucosa pink and moist, nl external ears & nose Neck: non-tender, supple Respiratory: clear to auscultation, normal air movement Cardiovascular: nl pulses, regular rate and rhythm Gastrointestinal: non-tender, soft, bowel sounds active in all 4 quadrants. Musculoskeletal/extremities: nl extremities to inspection, motor strength equal bilaterally, no focal deficit. Normal pulses,no cyanosis, no edema. Neurological: Alert oriented 3,nl speech, nl strength Skin: nl turgor ASSESSMENT/PLAN: 23-year-old female with sickle cell anemia, admitted with pain. 1. Sickle cell anemia w/pain syndrome -Patient with stable hemoglobin, stable hemodynamics. -She is on FULL TIME STAFF INTERPRETER morphine which we will stop in the morning and will start breakthrough as needed pain control with eventual transition to oral agents. 2. Asthma -Stable. Continue as needed bronchodilators. 3. N/V likely GERD -Part of her vomiting is likely secondary to morphine that she is receiving. In the context that she was supposed to have an EGD in the past, we will call GI consult to see whether we can get this done in the hospital. DVT prophylaxis: DC heparin and place SCDs. PUD prophylaxis: PPI CODE STATUS: Full code Diet: Regular diet. Disposition: Overall, patient remains hemodynamically stable. Her hemoglobin has been stable. We will wean her off FULL TIME STAFF INTERPRETER and transition to oral agents soon with discharge planning. Patient will also need to be seen by core analysis operator. Patient was seen in collaboration with Dr. Ma. Result Diagram: 01/06/19 0438 01/06/19 0438 Results 24hrs Laboratory Tests Test 01/06/19 04:38 White Blood Count 3.5 #L Red Blood Count 3.88 L Hemoglobin 10.1 L Hematocrit 28.4 L Mean Corpuscular Volume 73.2 L Mean Corpuscular Hemoglobin 26.0 L Mean Corpuscular Hemoglobin Concent 35.6 Red Cell Distribution Width 14.6 H Platelet Count 126 L Mean Platelet Volume 9.7 Immature Granulocytes % 0.600 H Neutrophils % 45.3 Lymphocytes % 43.1 Monocytes % 7.9 Eosinophils % 2.5 Basophils % 0.6 Nucleated Red Blood Cells % 0.0 Immature Granulocytes # 0.020 Neutrophils # 1.6 Lymphocytes # 1.5 Monocytes # 0.3 Eosinophils # 0.1 Basophils # 0.0 Nucleated Red Blood Cells # 0.0 Sodium Level 143 Potassium Level 3.9 Chloride Level 103 Carbon Dioxide Level 30 Anion Gap 10 Blood Urea Nitrogen 4 L Creatinine 0.63 Est Glomerular Filtrat Rate mL/min > 60 Glucose Level 91 Calcium Level 9.3 Exam/Review of Systems Exam Vitals Vital Signs Date Temp Pulse Resp B/P (MAP) Pulse Ox O2 O2 Flow FiO2 Time Delivery Rate 01/06/19 78 20 99 Nasal 1.0 13:46 Cannula 01/06/19 97.9 116/65 13:28 (82) 01/03/19 36 13:58 Intake and Output 01/05/19 01/05/19 01/06/19 1515:00 23:00 07:00 IntakeIntake Total 700 ml 1540 ml 1125 ml BalanceBalance 700 ml 1540 ml 1125 ml Results Results 24hrs Laboratory Tests Test 01/06/19 04:38 White Blood Count 3.5 #L Red Blood Count 3.88 L Hemoglobin 10.1 L Hematocrit 28.4 L Mean Corpuscular Volume 73.2 L Mean Corpuscular Hemoglobin 26.0 L Mean Corpuscular Hemoglobin Concent 35.6 Red Cell Distribution Width 14.6 H Platelet Count 126 L Mean Platelet Volume 9.7 Immature Granulocytes % 0.600 H Neutrophils % 45.3 Lymphocytes % 43.1 Monocytes % 7.9 Eosinophils % 2.5 Basophils % 0.6 Nucleated Red Blood Cells % 0.0 Immature Granulocytes # 0.020 Neutrophils # 1.6 Lymphocytes # 1.5 Monocytes # 0.3 Eosinophils # 0.1 Basophils # 0.0 Nucleated Red Blood Cells # 0.0 Sodium Level 143 Potassium Level 3.9 Chloride Level 103 Carbon Dioxide Level 30 Anion Gap 10 Blood Urea Nitrogen 4 L Creatinine 0.63 Est Glomerular Filtrat Rate mL/min > 60 Glucose Level 91 Calcium Level 9.3 Medications Medication Current Medications Sodium Chloride 1,000 ml @ 100 mls/hr Q10H IV Last administered on 01/06/19 01:41; Admin Dose 100 MLS/HR; Start 12/29/18 at 18:37 IV Flush (NS 3 ml) 3 ml PER PROTOCOL IV ; Start 12/29/18 at 19:00 Ondansetron HCl (Zofran Inj) 4 mg Q6H PRN IV NAUSEA/VOMITING Last administered on 01/06/19 11:58; Admin Dose 4 MG; Start 12/29/18 at 19:00 Acetaminophen (Tylenol Tab) 650 mg Q6H PRN PO .PAIN 1-3 OR TEMP Last administered on 01/05/19 16:16; Admin Dose 650 MG; Start 12/29/18 at 19:00 Oxycodone/ Acetaminophen (Percocet (5/ 325)) 1 tab Q6H PRN PO .PAINS 4-6 Last administered on 01/01/19 06:07; Admin Dose 1 TAB; Start 12/29/18 at 19:00 Albuterol/ Ipratropium (Duoneb) 3 ml Q2H RESP THERAPY PRN HHN shortness of breath Last administered on 01/05/19 05:28; Admin Dose 3 ML; Start 12/29/18 at 19:00 Albuterol/ Ipratropium (Duoneb) 3 ml Q6HWA RESP THERAPY HHN Last administered on 01/06/19 13:44; Admin Dose 3 ML; Start 12/29/18 at 20:00 Heparin Sodium (Porcine) (Heparin (5000 Units/1ml)) 5,000 unit Q8 SC Last administered on 01/06/19 06:44; Admin Dose 5,000 UNIT; Start 12/29/18 at 22:00 Pantoprazole (Protonix Tab) 40 mg DAILY@06 PO Last administered on 01/06/19 06:40; Admin Dose 40 MG; Start 01/02/19 at 06:00 Al Hydrox/Mg Hydrox/Simethicone (Mag-Al Plus) 30 ml Q6H PRN PO GASTROINTESTINAL UPSET; Start 01/01/19 at 12:30 Piperacillin Sod/ Tazobactam Sod 100 ml @ 200 mls/hr Q8 IVPB Last administered on 01/06/19at 06:39; Admin Dose 200 MLS/HR; Start 01/03/19 at 17:00; Stop 01/08/19 at 16:59 Morphine Sulfate (morphine) 2 MG/HR CONTINUOUS RATE 1... Q4PCA IV Last administered on 01/06/19at 12:00; Admin Dose 30 MG; Start 01/04/19 at 12:00 Docusate Sodium (Colace) 100 mg BID PO Last administered on 01/06/19at 08:53; Admin Dose 100 MG; Start 01/05/19 at 03:28 Polyethylene Glycol (Miralax) 17 gm DAILY PO Last administered on 01/05/19at 03:43; Admin Dose 17 GM; Start 01/05/19 at 03:28 Celecoxib (Celebrex) 100 mg BID PO Last administered on 01/06/19at 08:53; Admin Dose 100 MG; Start 01/05/19 at 10:00 SANDY VINES NP Jan 06, 2019 14:23
[2019-01-06] MEDS ORDERED: morphine 1 MG/ML 30 ML (PCA) IV SCH (14:30)
--- NOTE | 2019-01-06 14:53 | CONS ---
Assessment/Plan Assessment/Plan Hospital Course (Demo Recall) Summary Assessment and Plan: Assessment: Sickle cell anemia Persistent nausea/vomiting with occasional hematemesis Pyrosis Asthma Plan: N.p.o. after midnight EGD tomorrow Endoscopy - risks/benefits/alternatives/indications of procedure and sedation/anesthesia discussed with patient who states understanding and gives informed consent to proceed. Continue PPI therapy Further recommendations based on clinical course Patient seen in collaboration with CC: RAMIN JUSTICE ; Consultation Date/Type/Reason Admit Date/Time Dec 29, 2018 at 18:08 Date of Consultation: Jan 06, 2019 Type of Consult GI Reason for Consultation Persistent nausea/vomiting Date/Time of Note DATE: 01/06/19 TIME: 14:50 Hx of Present Illness This is a 23-year-old female with past medical history of sickle cell, pyrosis, and asthma who was admitted to the hospital with sickle cell crisis. With skin been complaining of persistent nausea/vomiting with occasional hematemesis she was evaluated as an outpatient her symptoms with possible plan for EGD. Here patient's nausea and vomiting has persisted, GI has been consulted for further evaluation. Time evaluation patient states nausea/vomiting is not aggravated or relieved by anything in particular she does note occasional blood in her emesis. She denies melena, hematochezia, diarrhea or constipation. Never previously had an upper endoscopy. I reviewed risk/benefits of sedation and procedure patient verbalized understanding is agreeable to procedure and further recommendations based on clinical course. Review of Systems: A 12 system, review was conducted and is negative except as noted in the HPI or here. Past Medical History Medical History: other (See HPI) Medications Current Medications Sodium Chloride 1,000 ml @ 100 mls/hr Q10H IV Last administered on 01/06/19at 14:28; Admin Dose 100 MLS/HR; Start 12/29/18 at 18:37 IV Flush (NS 3 ml) 3 ml PER PROTOCOL IV ; Start 12/29/18 at 19:00 Ondansetron HCl (Zofran Inj) 4 mg Q6H PRN IV NAUSEA/VOMITING Last administered on 01/06/19at 11:58; Admin Dose 4 MG; Start 12/29/18 at 19:00 Acetaminophen (Tylenol Tab) 650 mg Q6H PRN PO .PAIN 1-3 OR TEMP Last adminis tered on 01/05/19 16:16; Admin Dose 650 MG; Start 12/29/18 at 19:00 Oxycodone/ Acetaminophen (Percocet (5/ 325)) 1 tab Q6H PRN PO .PAINS 4-6 Last administered on 01/01/19 06:07; Admin Dose 1 TAB; Start 12/29/18 at 19:00 Albuterol/ Ipratropium (Duoneb) 3 ml Q2H RESP THERAPY PRN HHN shortness of b reath Last administered on 01/05/19 05:28; Admin Dose 3 ML; Start 12/29/18 at 19:00 Albuterol/ Ipratropium (Duoneb) 3 ml Q6HWA RESP THERAPY HHN Last administered on 01/06/19 13:44; Admin Dose 3 ML; Start 12/29/18 at 20:00 Pantoprazole (Protonix Tab) 40 mg DAILY@06 PO Last administered on 01/06/19 06:40; Admin Dose 40 MG; Start 01/02/19 at 06:00 Al Hydrox/Mg Hydrox/Simethicone (Mag-Al Plus) 30 ml Q6H PRN PO GASTROINTESTINAL UPSET; Start 01/01/19 at 12:30 Piperacillin Sod/ Tazobactam Sod 100 ml @ 200 mls/hr Q8 IVPB Last administered on 01/06/19 14:27; Admin Dose 200 MLS/HR; Start 01/03/19 at 17:00; Stop 01/08/19 at 16:59 Docusate Sodium (Colace) 100 mg BID PO Last administered on 01/06/19 08:53; Admin Dose 100 MG; Start 01/05/19 at 03:28 Polyethylene Glycol (Miralax) 17 gm DAILY PO Last administered on 01/05/19 03:43; Admin Dose 17 GM; Start 01/05/19 at 03:28 Celecoxib (Celebrex) 100 mg BID PO Last administered on 01/06/19 08:53; Admin Dose 100 MG; Start 01/05/19 at 10:00 Metoclopramide HCl (Reglan) 10 mg Q6 IV ; Start 01/06/19 at 18:00 Morphine Sulfate (morphine) 2 MG/HR CONTINUOUS RATE 1... Q4PCA IV ; Start 01/06/19 at 14:30; Stop 01/07/19 at 07:00; Status UNV Morphine Sulfate (morphine) 2 mg Q4H PRN IV SEVERE PAIN LEVEL 7-10; Start 01/07/19 at 07:00; Status UNV Allergies: Coded Allergies: No Known Allergy (Unverified , 12/29/18) Past Surgical History Past Surgical Hx: other (See HPI) Social History Alcohol Use: none Smoking Status: Never smoker Drug Use: none Exam/Review of Systems Exam Vitals Vital Signs Date Temp Pulse Resp B/P (MAP) Pulse Ox O2 O2 Flow FiO2 Time Delivery Rate 01/06/19 78 20 99 Nasal 1.0 13:46 Cannula 01/06/19 97.9 116/65 13:28 (82) 01/03/19 36 13:58 Intake and Output 01/05/19 01/05/19 01/06/19 1515:00 23:00 07:00 IntakeIntake Total 700 ml 1540 ml 1125 ml BalanceBalance 700 ml 1540 ml 1125 ml Exam PHYSICAL EXAMINATION: GENERAL: Well developed, well nourished, alert & oriented x 3, in no acute distress SKIN: No lesions EYES: Pupils equal reactive to light, no discharge. EARS/NOSE AND THROAT: Ears normal, nose normal. NECK: Supple, no masses CHEST: Inspection within normal limits. CARDIOVASCULAR: Heart: Regular rate and rhythm RESPIRATORY: Lungs clear to auscultation GASTROINTESTINAL AND LIVER: Abdomen: Soft, generalized tenderness with pal pation, non-distended, no hernias, no masses, no organomegaly, no ascites, no guarding, no rebound tenderness, normoactive bowel sounds. Rectal: Deferred. Results Result Diagram: 01/06/19 0438 01/06/19 0438 Results 24hrs Laboratory Tests Test 01/06/19 04:38 White Blood Count 3.5 #L Red Blood Count 3.88 L Hemoglobin 10.1 L Hematocrit 28.4 L Mean Corpuscular Volume 73.2 L Mean Corpuscular Hemoglobin 26.0 L Mean Corpuscular Hemoglobin Concent 35.6 Red Cell Distribution Width 14.6 H Platelet Count 126 L Mean Platelet Volume 9.7 Immature Granulocytes % 0.600 H Neutrophils % 45.3 Lymphocytes % 43.1 Monocytes % 7.9 Eosinophils % 2.5 Basophils % 0.6 Nucleated Red Blood Cells % 0.0 Immature Granulocytes # 0.020 Neutrophils # 1.6 Lymphocytes # 1.5 Monocytes # 0.3 Eosinophils # 0.1 Basophils # 0.0 Nucleated Red Blood Cells # 0.0 Sodium Level 143 Potassium Level 3.9 Chloride Level 103 Carbon Dioxide Level 30 Anion Gap 10 Blood Urea Nitrogen 4 L Creatinine 0.63 Est Glomerular Filtrat Rate mL/min > 60 Glucose Level 91 Calcium Level 9.3 Medications Medication Current Medications Sodium Chloride 1,000 ml @ 100 mls/hr Q10H IV Last administered on 01/06/19 14:28; Admin Dose 100 MLS/HR; Start 12/29/18 at 18:37 IV Flush (NS 3 ml) 3 ml PER PROTOCOL IV ; Start 12/29/18 at 19:00 Ondansetron HCl (Zofran Inj) 4 mg Q6H PRN IV NAUSEA/VOMITING Last administered on 01/06/19 11:58; Admin Dose 4 MG; Start 12/29/18 at 19:00 Acetaminophen (Tylenol Tab) 650 mg Q6H PRN PO .PAIN 1-3 OR TEMP Last administered on 01/05/19 16:16; Admin Dose 650 MG; Start 12/29/18 at 19:00 Oxycodone/ Acetaminophen (Percocet (5/ 325)) 1 tab Q6H PRN PO .PAINS 4-6 Last administered on 01/01/19 06:07; Admin Dose 1 TAB; Start 12/29/18 at 19:00 Albuterol/ Ipratropium (Duoneb) 3 ml Q2H RESP THERAPY PRN HHN shortness of breath Last administered on 01/05/19 05:28; Admin Dose 3 ML; Start 12/29/18 at 19:00 Albuterol/ Ipratropium (Duoneb) 3 ml Q6HWA RESP THERAPY HHN Last administered on 01/06/19 13:44; Admin Dose 3 ML; Start 12/29/18 at 20:00 Pantoprazole (Protonix Tab) 40 mg DAILY@06 PO Last administered on 01/06/19 06:40; Admin Dose 40 MG; Start 01/02/19 at 06:00 Al Hydrox/Mg Hydrox/Simethicone (Mag-Al Plus) 30 ml Q6H PRN PO GASTROINTESTINAL UPSET; Start 01/01/19 at 12:30 Piperacillin Sod/ Tazobactam Sod 100 ml @ 200 mls/hr Q8 IVPB Last administered on 01/06/19 14:27; Admin Dose 200 MLS/HR; Start 01/03/19 at 17:00; Stop 01/08/19 at 16:59 Docusate Sodium (Colace) 100 mg BID PO Last administered on 01/06/19at 08:53; Admin Dose 100 MG; Start 01/05/19 at 03:28 Polyethylene Glycol (Miralax) 17 gm DAILY PO Last administered on 01/05/19at 03:43; Admin Dose 17 GM; Start 01/05/19 at 03:28 Celecoxib (Celebrex) 100 mg BID PO Last administered on 01/06/19at 08:53; Admin Dose 100 MG; Start 01/05/19 at 10:00 Metoclopramide HCl (Reglan) 10 mg Q6 IV ; Start 01/06/19 at 18:00 Morphine Sulfate (morphine) 2 MG/HR CONTINUOUS RATE 1... Q4PCA IV ; Start 01/06/19 at 14:30; Stop 01/07/19 at 07:00; Status UNV Morphine Sulfate (morphine) 2 mg Q4H PRN IV SEVERE PAIN LEVEL 7-10; Start 01/07/19 at 07:00; Status UNV BECKI KIRKLAND Jan 06, 2019 14:53
[2019-01-06] MEDS: METOCLOPRAMIDE 10 MG INJ IV SCH ×2 (17:44→23:36)
[2019-01-06 20:21] VITALS: BP 105/72; PULSE 77; RESP 16
[2019-01-06] MEDS ORDERED: DIPHENHYDRAMINE 25 MG CAP PO ONE (22:30)
[2019-01-07] VITALS (20 sets, daily range): BP systolic 96–162; BP diastolic 51–81; PULSE 78–112; RESP 13–34
[2019-01-07] MEDS ORDERED: DIPHENHYDRAMINE 50 MG INJ IV ONE ×2 (03:00→22:00)
[2019-01-07] MEDS: SOD CHLORIDE 0.9% 1,000 ML IV SCH ×3 (03:10→22:30)
[2019-01-07] MEDS: PANTOPRAZOLE (EC) 40 MG TAB PO SCH (06:00)
[2019-01-07] MEDS: METOCLOPRAMIDE 10 MG INJ IV SCH ×3 (06:02→17:56)
[2019-01-07] MEDS: PIPER-TAZO 3.375 GM IV (PMX) 100 ML IVPB SCH ×3 (06:02→22:20)
[2019-01-07] MEDS ORDERED: morphine 2 MG INJ IV PRN (07:00)
--- NOTE | 2019-01-07 07:16 | CONS ---
Assessment/Plan Assessment/Plan Assessment/Plan (Daily) Dictated note for the visit 01/06/2019 Assessment/Plan (Daily) 23 year old lady with SS with accelerated crisis in the last three years Typical onset of crisis beginning 2 days ago. Hydroxyurea Recently lost PMD secondary to losing health insurance. She is improving requiring less pain control medications at this time. 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 Consultation Date/Type/Reason Admit Date/Time Dec 29, 2018 at 18:08 Initial Consult Date 01/06/19 Date/Time of Note DATE: 01/07/19 TIME: 07:13 Exam/Review of Systems Exam Vitals Vital Signs Date Temp Pulse Resp B/P (MAP) Pulse Ox O2 O2 Flow FiO2 Time Delivery Rate 01/07/19 18 05:00 01/07/19 98.6 86 136/70 99 02:20 (92) 01/07/19 3.0 00:48 01/06/19 Nasal 20:09 Cannula 01/03/19 36 13:58 Intake and Output 01/06/19 01/06/19 01/07/19 1414:59 22:59 06:59 IntakeIntake Total 875 ml 200 ml 1200 ml BalanceBalance 875 ml 200 ml 1200 ml Constitutional: alert, oriented, well developed Respiratory: clear to auscultation, normal air movement Cardiovascular: regular rate and rhythm, nl pulses; No bruits, No diastolic murmur, No edema, No gallop, No irregular rhythm, No jugular venous distention (JVD), No murmurs/extra sounds, No rub, No systolic murmur, No S3, No S4, No other Neurological: COMPUTER BOOKKEEPER II-XII intact, nl mental status, nl speech, nl strength; No confused, No DTR's symmetric, No focal weakness, No lethargic, No numbness, No reflexes, No unresponsive, No other Results Result Diagram: 01/07/1944001/07/19440 Results 24hrs Laboratory Tests Test 01/06/19 19:13 01/07/19 04:41 Urine Test NEGATIVE White Blood Count 4.5 #L Red Blood Count 3.95 L Hemoglobin 10.3 L Hematocrit 28.6 L Mean Corpuscular Volume 72.4 L Mean Corpuscular Hemoglobin 26.1 L Mean Corpuscular Hemoglobin Concent 36.0 Red Cell Distribution Width 14.5 Platelet Count 149 Mean Platelet Volume 9.8 Immature Granulocytes % 0.400 Neutrophils % 55.1 Lymphocytes % 32.8 Monocytes % 8.8 Eosinophils % 2.7 Basophils % 0.2 Nucleated Red Blood Cells % 0.0 Immature Granulocytes # 0.020 Neutrophils # 2.5 Lymphocytes # 1.5 Monocytes # 0.4 Eosinophils # 0.1 Basophils # 0.0 Nucleated Red Blood Cells # 0.0 Sodium Level 141 Potassium Level 3.9 Chloride Level 105 Carbon Dioxide Level 28 Anion Gap 8 Blood Urea Nitrogen 3 L Creatinine 0.58 Est Glomerular Filtrat Rate mL/min > 60 Glucose Level 90 Calcium Level 9.4 Medications Medication Current Medications Sodium Chloride 1,000 ml @ 100 mls/hr Q10H IV Last administered on 01/07/19 03:10; Admin Dose 100 MLS/HR; Start 12/29/18 at 18:37 IV Flush (NS 3 ml) 3 ml PER PROTOCOL IV ; Start 12/29/18 at 19:00 Ondansetron HCl (Zofran Inj) 4 mg Q6H PRN IV NAUSEA/VOMITING Last administered on 01/06/19 11:58; Admin Dose 4 MG; Start 12/29/18 at 19:00 Acetaminophen (Tylenol Tab) 650 mg Q6H PRN PO .PAIN 1-3 OR TEMP Last administered on 01/05/19 16:16; Admin Dose 650 MG; Start 12/29/18 at 19:00 Oxycodone/ Acetaminophen (Percocet (5/ 325)) 1 tab Q6H PRN PO .PAINS 4-6 Last administered on 01/01/19 06:07; Admin Dose 1 TAB; Start 12/29/18 at 19:00 Albuterol/ Ipratropium (Duoneb) 3 ml Q2H RESP THERAPY PRN HHN shortness of breath Last administered on 01/05/19 05:28; Admin Dose 3 ML; Start 12/29/18 at 19:00 Albuterol/ Ipratropium (Duoneb) 3 ml Q6HWA RESP THERAPY HHN Last administered on 01/06/19 20:08; Admin Dose 3 ML; Start 12/29/18 at 20:00 Pantoprazole (Protonix Tab) 40 mg DAILY@06 PO Last administered on 01/06/19 06:40; Admin Dose 40 MG; Start 01/02/19 at 06:00 Al Hydrox/Mg Hydrox/Simethicone (Mag-Al Plus) 30 ml Q6H PRN PO GASTROINTESTINAL UPSET; Start 01/01/19 at 12:30 Piperacillin Sod/ Tazobactam Sod 100 ml @ 200 mls/hr Q8 IVPB Last administered on 01/07/19at 06:02; Admin Dose 200 MLS/HR; Start 01/03/19 at 17:00; Stop 01/08/19 at 16:59 Docusate Sodium (Colace) 100 mg BID PO Last administered on 01/06/19at 21:08; Admin Dose 100 MG; Start 01/05/19 at 03:28 Polyethylene Glycol (Miralax) 17 gm DAILY PO Last administered on 01/05/19at 03:43; Admin Dose 17 GM; Start 01/05/19 at 03:28 Celecoxib (Celebrex) 100 mg BID PO Last administered on 01/06/19at 21:08; Admin Dose 100 MG; Start 01/05/19 at 10:00 Metoclopramide HCl (Reglan) 10 mg Q6 IV Last administered on 01/07/19at 06:02; Admin Dose 10 MG; Start 01/06/19 at 18:00 Morphine Sulfate (morphine) 2 mg Q4H PRN IV SEVERE PAIN LEVEL 7-10; Start 01/07/19 at 07:00 KIRSTY KELLEY Jan 07, 2019 07:16
[2019-01-07] MEDS: ALBUTEROL/IPRATROPIUM (NEB) 3 ML AMP HHN SCH ×3 (07:48→19:46)
[2019-01-07] MEDS: CELECOXIB 100 MG CAP PO SCH ×2 (08:01→20:09)
[2019-01-07] MEDS: DOCUSATE SODIUM 100 MG CAP PO SCH ×2 (08:02→20:09)
[2019-01-07] MEDS: POLYETHYLENE GLYCOL 17 GM PACKET PO SCH (08:03)
--- NOTE | 2019-01-07 11:00 | CONS ---
Assessment/Plan Assessment/Plan Assessment/Plan (Daily) Sickle cell disease Chronic pain syndrome Asthma Her pain is well controlled at this time and will be discharged on oral medications. I have told her to see her primary care physician as soon as irina warren, keep herself well-hydrated stay in close contact with her primary care team. Consultation Date/Type/Reason Admit Date/Time Dec 29, 2018 at 18:08 Initial Consult Date 01/06/19 Date/Time of Note DATE: 01/07/19 TIME: 10:59 Exam/Review of Systems Exam Vitals Vital Signs Date Temp Pulse Resp B/P (MAP) Pulse Ox O2 O2 Flow FiO2 Time Delivery Rate 01/07/19 99.0 107 18 111/55 97 08:23 (73) 01/07/19 Nasal 3.0 07:51 Cannula 01/03/19 36 13:58 Intake and Output 01/06/19 01/06/19 01/07/19 1515:00 23:00 07:00 IntakeIntake Total 875 ml 200 ml 1200 ml BalanceBalance 875 ml 200 ml 1200 ml Constitutional: alert, oriented, well developed Respiratory: clear to auscultation, normal air movement Neurological: LUMBER STICKER II-XII intact, nl mental status, nl speech, nl strength Results Result Diagram: 01/07/19 0441 01/07/19 0441 Results 24hrs Laboratory Tests Test 01/06/19 19:13 01/07/19 04:41 Urine Test NEGATIVE White Blood Count 4.5 #L Red Blood Count 3.95 L Hemoglobin 10.3 L Hematocrit 28.6 L Mean Corpuscular Volume 72.4 L Mean Corpuscular Hemoglobin 26.1 L Mean Corpuscular Hemoglobin Concent 36.0 Red Cell Distribution Width 14.5 Platelet Count 149 Mean Platelet Volume 9.8 Immature Granulocytes % 0.400 Neutrophils % 55.1 Lymphocytes % 32.8 Monocytes % 8.8 Eosinophils % 2.7 Basophils % 0.2 Nucleated Red Blood Cells % 0.0 Immature Granulocytes # 0.020 Neutrophils # 2.5 Lymphocytes # 1.5 Monocytes # 0.4 Eosinophils # 0.1 Basophils # 0.0 Nucleated Red Blood Cells # 0.0 Sodium Level 141 Potassium Level 3.9 Chloride Level 105 Carbon Dioxide Level 28 Anion Gap 8 Blood Urea Nitrogen 3 L Creatinine 0.58 Est Glomerular Filtrat Rate mL/min > 60 Glucose Level 90 Calcium Level 9.4 Medications Medication Current Medications Sodium Chloride 1,000 ml @ 100 mls/hr Q10H IV Last administered on 01/07/19 03:10; Admin Dose 100 MLS/HR; Start 12/29/18 at 18:37 IV Flush (NS 3 ml) 3 ml PER PROTOCOL IV ; Start 12/29/18 at 19:00 Ondansetron HCl (Zofran Inj) 4 mg Q6H PRN IV NAUSEA/VOMITING Last administered on 01/06/19 11:58; Admin Dose 4 MG; Start 12/29/18 at 19:00 Acetaminophen (Tylenol Tab) 650 mg Q6H PRN PO .PAIN 1-3 OR TEMP Last administered on 01/05/19 16:16; Admin Dose 650 MG; Start 12/29/18 at 19:00 Albuterol/ Ipratropium (Duoneb) 3 ml Q2H RESP THERAPY PRN HHN shortness of breath Last administered on 01/05/19 05:28; Admin Dose 3 ML; Start 12/29/18 at 19:00 Albuterol/ Ipratropium (Duoneb) 3 ml Q6HWA RESP THERAPY HHN Last administered on 01/07/19 07:48; Admin Dose 3 ML; Start 12/29/18 at 20:00 Pantoprazole (Protonix Tab) 40 mg DAILY@06 PO Last administered on 01/06/19 06:40; Admin Dose 40 MG; Start 01/02/19 at 06:00 Al Hydrox/Mg Hydrox/Simethicone (Mag-Al Plus) 30 ml Q6H PRN PO GASTROINTESTINAL UPSET; Start 01/01/19 at 12:30 Piperacillin Sod/ Tazobactam Sod 100 ml @ 200 mls/hr Q8 IVPB Last administered on 01/07/19 06:02; Admin Dose 200 MLS/HR; Start 01/03/19 at 17:00; Stop 01/08/19 at 16:59 Docusate Sodium (Colace) 100 mg BID PO Last administered on 01/06/19 21:08; Admin Dose 100 MG; Start 01/05/19 at 03:28 Polyethylene Glycol (Miralax) 17 gm DAILY PO Last administered on 01/05/19 03:43; Admin Dose 17 GM; Start 01/05/19 at 03:28 Celecoxib (Celebrex) 100 mg BID PO Last administered on 01/06/19at 21:08; Admin Dose 100 MG; Start 01/05/19 at 10:00 Metoclopramide HCl (Reglan) 10 mg Q6 IV Last administered on 01/07/19at 06:02; Admin Dose 10 MG; Start 01/06/19 at 18:00 Oxycodone/ Acetaminophen (Percocet (5/ 325)) 2 tab Q6H PRN PO .PAINS 4-6; Start 01/07/19 at 13:00 Morphine Sulfate (morphine) 2 mg Q4H PRN IV PAIN; Start 01/07/19 at 08:00 KIRSTY KELLEY Jan 07, 2019 11:00
[2019-01-07] MEDS: morphine 2 MG INJ IV PRN ×3 (11:37→22:27)
--- NOTE | 2019-01-07 12:03 | PN ---
Date/Time of Note Date/Time of Note DATE: 01/07/19 TIME: 12:01 Assessment/Plan VTE Prophylaxis Risk score (from Nsg)>0 risk: 1 SCD applied (from Ns): Yes Pharmacological prophylaxis: NA/contraindicated Pharm contraindication: low risk/ambulating Lines/Catheters IV Catheter Type (from Nrsg): Peripheral IV Assessment/Plan Hospital Course SUBJECTIVE: No acute overnight episodes. OPERATOR discontinued today at 7:00 and her first dose of morphine 2 mg was at 1130. Scheduled for EGD. OBJECTIVE: Vital signs-see below PHYSICAL EXAM: Constitutional: AA female, lying in bed, no acute distress. Psych: nl mood/affect, no complaints Head: atraumatic, normocephalic Eyes: nl conjunctiva, nl sclera ENMT: mucosa pink and moist, nl external ears & nose Neck: non-tender, supple Respiratory: clear to auscultation, normal air movement Cardiovascular: nl pulses, regular rate and rhythm Gastrointestinal: non-tender, soft, bowel sounds active in all 4 quadrants. Musculoskeletal/extremities: nl extremities to inspection, motor strength equal bilaterally, no focal deficit. Normal pulses,no cyanosis, no edema. Neurological: Alert oriented 3,nl speech, nl strength Skin: nl turgor ASSESSMENT/PLAN: 23-year-old female with sickle cell anemia, admitted with pain. 1. Sickle cell anemia w/pain syndrome -Patient with stable hemoglobin, stable hemodynamics. -s/p OPERATOR. Continue oral PRN analgesia with IV morphine for severe pain. 2. Asthma -Stable. Continue as needed bronchodilators. 3. N/V likely GERD -Part of her vomiting is likely secondary to morphine that she is receiving. In the context that she was supposed to have an EGD in the past, she is now scheduled for EGD evaluation today. DVT prophylaxis: SCDs. PUD prophylaxis: PPI CODE STATUS: Full code Diet: Regular diet. Disposition: Overall, patient remains hemodynamically stable. Her hemoglobin has been stable. She has been successfully weaned off from OPERATOR morphine. At this time, plan is discharge in next 24 hours with oral pain meds and to have patient follow-up with her outpatient primary care physician. Patient was seen in collaboration with Dr. Ma. Result Diagram: 01/07/19 0441 01/07/19 0441 Results 24hrs Laboratory Tests Test 01/06/19 19:13 01/07/19 04:41 Urine Test NEGATIVE White Blood Count 4.5 #L Red Blood Count 3.95 L Hemoglobin 10.3 L Hematocrit 28.6 L Mean Corpuscular Volume 72.4 L Mean Corpuscular Hemoglobin 26.1 L Mean Corpuscular Hemoglobin Concent 36.0 Red Cell Distribution Width 14.5 Platelet Count 149 Mean Platelet Volume 9.8 Immature Granulocytes % 0.400 Neutrophils % 55.1 Lymphocytes % 32.8 Monocytes % 8.8 Eosinophils % 2.7 Basophils % 0.2 Nucleated Red Blood Cells % 0.0 Immature Granulocytes # 0.020 Neutrophils # 2.5 Lymphocytes # 1.5 Monocytes # 0.4 Eosinophils # 0.1 Basophils # 0.0 Nucleated Red Blood Cells # 0.0 Sodium Level 141 Potassium Level 3.9 Chloride Level 105 Carbon Dioxide Level 28 Anion Gap 8 Blood Urea Nitrogen 3 L Creatinine 0.58 Est Glomerular Filtrat Rate mL/min > 60 Glucose Level 90 Calcium Level 9.4 Exam/Review of Systems Exam Vitals Vital Signs Date Temp Pulse Resp B/P (MAP) Pulse Ox O2 O2 Flow FiO2 Time Delivery Rate 01/07/19 99.0 107 18 111/55 97 08:23 (73) 01/07/19 Nasal 3.0 07:51 Cannula 01/03/19 36 13:58 Intake and Output 01/06/19 01/06/19 01/07/19 1515:00 23:00 07:00 IntakeIntake Total 875 ml 200 ml 1200 ml BalanceBalance 875 ml 200 ml 1200 ml Results Results 24hrs Laboratory Tests Test 01/06/19 19:13 01/07/19 04:41 Urine Test NEGATIVE White Blood Count 4.5 #L Red Blood Count 3.95 L Hemoglobin 10.3 L Hematocrit 28.6 L Mean Corpuscular Volume 72.4 L Mean Corpuscular Hemoglobin 26.1 L Mean Corpuscular Hemoglobin Concent 36.0 Red Cell Distribution Width 14.5 Platelet Count 149 Mean Platelet Volume 9.8 Immature Granulocytes % 0.400 Neutrophils % 55.1 Lymphocytes % 32.8 Monocytes % 8.8 Eosinophils % 2.7 Basophils % 0.2 Nucleated Red Blood Cells % 0.0 Immature Granulocytes # 0.020 Neutrophils # 2.5 Lymphocytes # 1.5 Monocytes # 0.4 Eosinophils # 0.1 Basophils # 0.0 Nucleated Red Blood Cells # 0.0 Sodium Level 141 Potassium Level 3.9 Chloride Level 105 Carbon Dioxide Level 28 Anion Gap 8 Blood Urea Nitrogen 3 L Creatinine 0.58 Est Glomerular Filtrat Rate mL/min > 60 Glucose Level 90 Calcium Level 9.4 Medications Medication Current Medications Sodium Chloride 1,000 ml @ 100 mls/hr Q10H IV Last administered on 01/07/19 03:10; Admin Dose 100 MLS/HR; Start 12/29/18 at 18:37 IV Flush (NS 3 ml) 3 ml PER PROTOCOL IV ; Start 12/29/18 at 19:00 Ondansetron HCl (Zofran Inj) 4 mg Q6H PRN IV NAUSEA/VOMITING Last administered on 01/06/19 11:58; Admin Dose 4 MG; Start 12/29/18 at 19:00 Acetaminophen (Tylenol Tab) 650 mg Q6H PRN PO .PAIN 1-3 OR TEMP Last administered on 01/05/19 16:16; Admin Dose 650 MG; Start 12/29/18 at 19:00 Albuterol/ Ipratropium (Duoneb) 3 ml Q2H RESP THERAPY PRN HHN shortness of breath Last administered on 01/05/19 05:28; Admin Dose 3 ML; Start 12/29/18 at 19:00 Albuterol/ Ipratropium (Duoneb) 3 ml Q6HWA RESP THERAPY HHN Last administered on 01/07/19 07:48; Admin Dose 3 ML; Start 12/29/18 at 20:00 Pantoprazole (Protonix Tab) 40 mg DAILY@06 PO Last administered on 01/06/19 06:40; Admin Dose 40 MG; Start 01/02/19 at 06:00 Al Hydrox/Mg Hydrox/Simethicone (Mag-Al Plus) 30 ml Q6H PRN PO GASTROINTESTINAL UPSET; Start 01/01/19 at 12:30 Piperacillin Sod/ Tazobactam Sod 100 ml @ 200 mls/hr Q8 IVPB Last administered on 01/07/19 06:02; Admin Dose 200 MLS/HR; Start 01/03/19 at 17:00; Stop 01/08/19 at 16:59 Docusate Sodium (Colace) 100 mg BID PO Last administered on 3/25/19at 21:08; Admin Dose 100 MG; Start 01/05/19 at 03:28 Polyethylene Glycol (Miralax) 17 gm DAILY PO Last administered on 01/05/19at 03:43; Admin Dose 17 GM; Start 01/05/19 at 03:28 Celecoxib (Celebrex) 100 mg BID PO Last administered on 01/06/19at 21:08; Admin Dose 100 MG; Start 01/05/19 at 10:00 Metoclopramide HCl (Reglan) 10 mg Q6 IV Last administered on 01/07/19at 06:02; Admin Dose 10 MG; Start 01/06/19 at 18:00 Oxycodone/ Acetaminophen (Percocet (5/ 325)) 2 tab Q6H PRN PO .PAINS 4-6; Start 01/07/19 at 13:00 Morphine Sulfate (morphine) 2 mg Q4H PRN IV PAIN Last administered on 01/07/19at 11:37; Admin Dose 2 MG; Start 01/07/19 at 08:00 SANDY VINES NP Jan 07, 2019 12:03
[2019-01-07] MEDS ORDERED: OXYCODONE/ACETAMINOPHEN (5/325) TAB PO PRN (13:00)
--- NOTE | 2019-01-07 15:52 | PREAC ---
Date/Time of Note Date/Time of Note DATE: 01/07/19 TIME: 15:51 Anesthesia Eval and Record Evaluation Time Pre-Procedure Interview DATE: 01/07/19 TIME: 15:51 Age 23 Sex female NPO: 8 hrs Preoperative diagnosis nausea, vomiting Planned procedure EGD Past Medical History Past Medical History: Includes Pulm: Asthma Heme: Other (sickle cell disease) Surgery & Anesthesia Issues No known issue Meds Anticoagulation: No Beta Garth within 24 hr: No Reason Beta Garth not given: Pt. not on B-Garth Current Medications Sodium Chloride 1,000 ml @ 100 mls/hr Q10H IV Last administered on 01/07/19 03:10; Admin Dose 100 MLS/HR; Start 12/29/18 at 18:37 IV Flush (NS 3 ml) 3 ml PER PROTOCOL IV ; Start 12/29/18 at 19:00 Ondansetron HCl (Zofran Inj) 4 mg Q6H PRN IV NAUSEA/VOMITING Last administered on 01/06/19 11:58; Admin Dose 4 MG; Start 12/29/18 at 19:00 Acetaminophen (Tylenol Tab) 650 mg Q6H PRN PO .PAIN 1-3 OR TEMP Last administered on 01/05/19at 16:16; Admin Dose 650 MG; Start 12/29/18 at 19:00 Albuterol/ Ipratropium (Duoneb) 3 ml Q2H RESP THERAPY PRN HHN shortness of breath Last administered on 01/05/19 05:28; Admin Dose 3 ML; Start 12/29/18 at 19:00 Albuterol/ Ipratropium (Duoneb) 3 ml Q6HWA RESP THERAPY HHN Last administered on 01/07/19at 13:44; Admin Dose 3 ML; Start 12/29/18 at 20:00 Pantoprazole (Protonix Tab) 40 mg DAILY@06 PO Last administered on 01/06/19 06:40; Admin Dose 40 MG; Start 01/02/19 at 06:00 Al Hydrox/Mg Hydrox/Simethicone (Mag-Al Plus) 30 ml Q6H PRN PO GASTROINTESTINAL UPSET; Start 01/01/19 at 12:30 Piperacillin Sod/ Tazobactam Sod 100 ml @ 200 mls/hr Q8 IVPB Last administered on 3/26/19at 13:14; Admin Dose 200 MLS/HR; Start 01/03/19 at 17:00; Stop 01/08/19 at 16:59 Docusate Sodium (Colace) 100 mg BID PO Last administered on 01/06/19at 21:08; Admin Dose 100 MG; Start 01/05/19 at 03:28 Polyethylene Glycol (Miralax) 17 gm DAILY PO Last administered on 01/05/19 03:43; Admin Dose 17 GM; Start 01/05/19 at 03:28 Celecoxib (Celebrex) 100 mg BID PO Last administered on 01/06/19 21:08; Admin Dose 100 MG; Start 01/05/19 at 10:00 Metoclopramide HCl (Reglan) 10 mg Q6 IV Last administered on 01/07/19at 13:15; Admin Dose 10 MG; Start 01/06/19 at 18:00 Oxycodone/ Acetaminophen (Percocet (5/ 325)) 2 tab Q6H PRN PO .PAINS 4-6; Start 01/07/19 at 13:00 Morphine Sulfate (morphine) 2 mg Q4H PRN IV PAIN Last administered on 01/07/19at 11:37; Admin Dose 2 MG; Start 01/07/19 at 08:00 Meds reviewed: Yes Allergies Coded Allergies: No Known Allergy (Unverified , 12/29/18) Allergies Reviewed: Yes Labs/Studies Labs Reviewed: Reviewed by anesthesiologist Result Diagram: 01/07/1944001/07/19 0441 Laboratory Tests 01/07/19 04:41 test: Negative Pre-procedure Exam Last vitals Vital Signs Date Temp Pulse Resp B/P (MAP) Pulse Ox O2 O2 Flow FiO2 Time Delivery Rate 01/07/19 98.4 81 17 113/61 100 Mask 12.0 15:36 (78) 01/03/19 36 13:58 Airway: Adequate mouth opening, Adequate thyromental dist Mallampati: Mallampati II Teeth: Normal Lung: Normal Heart: Normal ASA Physical Status ASA physical status: 2 Emergency: None Planned Anesthetic General/MAC: Mask Planned Pain Management Parenteral pain med Pre-operative Attestations Prior to commencing anesthesia and surgery, the patient was re-evaluated, there was verification of: *The patient's identity *The results of appropriate recent lab work and preoperative vital signs *The above evaluation not changing prior to induction *Anesthetic plan, risk benefits, alternative and complications discussed with patient/family; questions answered; patient/family understands, accepts and wishes to proceed. MANI OLMOS MD Jan 07, 2019 15:52
[2019-01-07] MEDS ORDERED: LIDOCAINE 2% (SDV) 5 ML INJ ONE (15:53)
[2019-01-07] MEDS ORDERED: PROPOFOL 20 ML ONE (15:53)
[2019-01-07] MEDS ORDERED: ONDANSETRON 4 MG INJ IV PRN (16:00)
[2019-01-07] MEDS ORDERED: MEPERIDINE 25 MG INJ IV PRN (16:00)
[2019-01-07] MEDS ORDERED: HYDROmorphONE 1 MG/5 ML IV SYRINGE IV PRN (16:00)
[2019-01-07] MEDS ORDERED: DIPHENHYDRAMINE 50 MG INJ IV PRN (16:00)
--- NOTE | 2019-01-07 16:27 | HPN ---
Date/Time of Note Date/Time of Note DATE: 01/07/19 TIME: 16:27 Interval H&P Admission Note Pt. seen H&P reviewed: No system changes RAMIN JUSTICE Jan 07, 2019 16:27
--- NOTE | 2019-01-07 16:31 | PAC ---
Date/Time of Note Date/Time of Note DATE: 01/07/19 TIME: 16:31 Post-Anesthesia Notes Post-Anesthesia Note Last documented vital signs Vital Signs Date Temp Pulse Resp B/P (MAP) Pulse Ox O2 O2 Flow FiO2 Time Delivery Rate 01/07/19 95 16 119/71 98 Mask 2.0 16:06 (87) 01/07/19 98.4 15:36 01/03/19 36 13:58 Activity: WNL Respiratory function: WNL Cardiovascular function: WNL Mental status: Baseline Pain reasonably controlled: Yes Hydration appropriate: Yes Nausea/Vomiting absent: Yes MANI OLMOS MD Jan 07, 2019 16:31
[2019-01-08] MEDS: METOCLOPRAMIDE 10 MG INJ IV SCH ×3 (00:26→11:37)
[2019-01-08 02:49] VITALS: BP 109/65; PULSE 89; RESP 18
[2019-01-08] MEDS: SOD CHLORIDE 0.9% 1,000 ML IV SCH ×2 (03:58→04:45)
[2019-01-08] MEDS: morphine 2 MG INJ IV PRN (04:45)
[2019-01-08] MEDS: PANTOPRAZOLE (EC) 40 MG TAB PO SCH (05:08)
[2019-01-08] MEDS: PIPER-TAZO 3.375 GM IV (PMX) 100 ML IVPB SCH (05:08)
[2019-01-08 07:57] VITALS: BP 105/69; PULSE 81; RESP 18
[2019-01-08] MEDS: ALBUTEROL/IPRATROPIUM (NEB) 3 ML AMP HHN SCH ×2 (08:06→15:49)
[2019-01-08] MEDS: POLYETHYLENE GLYCOL 17 GM PACKET PO SCH (09:00)
[2019-01-08] MEDS: DOCUSATE SODIUM 100 MG CAP PO SCH (09:17)
[2019-01-08] MEDS: CELECOXIB 100 MG CAP PO SCH (09:17)
--- NOTE | 2019-01-08 09:38 | PN ---
Date/Time of Note Date/Time of Note DATE: 01/08/19 TIME: 09:32 Assessment/Plan VTE Prophylaxis Risk score (from Ns)>0 risk: 1 SCD applied (from Ns): No SCD contraindicated: other (scds) Pharmacological prophylaxis: other (scds) Lines/Catheters IV [facility]from [facility]): Peripheral IV Assessment/Plan Hospital Course Summary Assessment and Plan: Assessment: Sickle cell anemia Persistent nausea/vomiting with occasional hematemesis EGD 01/07/19 EGD relatively normal, nonspecific findings Biopsies taken to rule out microscopic pathology Pyrosis Asthma Plan: PPI daily Pt stable for d/c from GI point of view- d/c planning per hospitalist Bx results pending Patient seen in collaboration with Subjective: Course reviewed with nursing staff Patient interviewed and examined All labs, imaging and other results reviewed The patient resting in bed, no acute distress. I discussed results of EGD, bx pending Reviewed GERD precaution and life style modifications Encouraged ambulation PHYSICAL EXAMINATION: GENERAL: Well developed, well nourished, alert & oriented x 3, in no acute distress SKIN: No lesions EYES: Pupils equal reactive to light, no discharge. EARS/NOSE AND THROAT: Ears normal, nose normal. NECK: Supple, no masses CHEST: Inspection within normal limits. CARDIOVASCULAR: Heart: Regular rate and rhythm RESPIRATORY: Lungs clear to auscultation GASTROINTESTINAL AND LIVER: Abdomen: Soft, generalized tenderness with palpation, non-distended, no hernias, no masses, no organomegaly, no ascites, no guarding, no rebound tenderness, normoactive bowel sounds. Rectal: Deferred. Result Diagram: 01/07/1944001/07/19440 Exam/Review of Systems Exam Vitals Vital Signs Date Temp Pulse Resp B/P (MAP) Pulse Ox O2 O2 Flow FiO2 Time Delivery Rate 01/08/19 84 16 99 Nasal 1.0 08:10 Cannula 01/08/19 98.0 105/69 07:57 (81) Intake and Output 01/07/19 01/07/19 01/08/19 1515:00 23:00 07:00 IntakeIntake Total 700 ml 2140 ml 1115 ml BalanceBalance 700 ml 2140 ml 1115 ml Medications Medication Current Medications Sodium Chloride 1,000 ml @ 100 mls/hr Q10H IV Last administered on 01/08/19at 04:45; Admin Dose 100 MLS/HR; Start 12/29/18 at 18:37 IV Flush (NS 3 ml) 3 ml PER PROTOCOL IV ; Start 12/29/18 at 19:00 Ondansetron HCl (Zofran Inj) 4 mg Q6H PRN IV NAUSEA/VOMITING Last administered on 01/06/19 11:58; Admin Dose 4 MG; Start 12/29/18 at 19:00 Acetaminophen (Tylenol Tab) 650 mg Q6H PRN PO .PAIN 1-3 OR TEMP Last administered on 01/05/19 16:16; Admin Dose 650 MG; Start 12/29/18 at 19:00 Albuterol/ Ipratropium (Duoneb) 3 ml Q2H RESP THERAPY PRN HHN shortness of theresa th Last administered on 01/05/19 05:28; Admin Dose 3 ML; Start 12/29/18 at 19:00 Albuterol/ Ipratropium (Duoneb) 3 ml Q6HWA RESP THERAPY HHN Last administered on 01/08/19 08:06; Admin Dose 3 ML; Start 12/29/18 at 20:00 Pantoprazole (Protonix Tab) 40 mg DAILY@06 PO Last administered on 01/08/19 05:08; Admin Dose 40 MG; Start 01/02/19 at 06:00 Al Hydrox/Mg Hydrox/Simethicone (Mag-Al Plus) 30 ml Q6H PRN PO GASTROINTESTINAL UPSET; Start 01/01/19 at 12:30 Piperacillin Sod/ Tazobactam Sod 100 ml @ 200 mls/hr Q8 IVPB Last administered on 01/08/19 05:08; Admin Dose 200 MLS/HR; Start 01/03/19 at 17:00; Stop 01/08/19 at 16:59 Docusate Sodium (Colace) 100 mg BID PO Last administered on 01/08/19 09:17; Admin Dose 100 MG; Start 01/05/19 at 03:28 Polyethylene Glycol (Miralax) 17 gm DAILY PO Last administered on 01/05/19 03:43; Admin Dose 17 GM; Start 01/05/19 at 03:28 Celecoxib (Celebrex) 100 mg BID PO Last administered on 01/08/19 09:17; Admin Dose 100 MG; Start 01/05/19 at 10:00 Metoclopramide HCl (Reglan) 10 mg Q6 IV Last administered on 01/08/19at 05:08; Admin Dose 10 MG; Start 01/06/19 at 18:00 Oxycodone/ Acetaminophen (Percocet (5/ 325)) 2 tab Q6H PRN PO .PAINS 4-6 Last administered on 01/08/19 09:17; Admin Dose 2 TAB; Start 01/07/19 at 13:00 Morphine Sulfate (morphine) 2 mg Q4H PRN IV PAIN Last administered on 01/08/19at 04:45; Admin Dose 2 MG; Start 01/07/19 at 08:00 BECKI KIRKLAND Jan 08, 2019 09:38
--- NOTE | 2019-01-08 11:47 | PDOCDIS ---
Discharge Instructions CONDITION [id number] Patient Condition: [id number] Stable HOME CARE INSTRUCTIONS: [id number] Diet Instructions: [id number] Regular FOLLOW UP/APPOINTMENTS Follow-up Plan Follow-up with your primary care physician in 1 week YOU WERE NOTED WITH A POSSIBLE SIDE EFFECT (LOCKED JAW) TO REGLAN (METOCLOPRAMIDE).PLEASE BE AWARE OF IT AND TELL YOUR PROVIDERS THAT YOU BODY CANNOT TOLERATE THIS MEDICINE. SANDY VINES NP Jan 08, 2019 11:47
[2019-01-08] MEDS ORDERED: PANT40TA3 PO (11:56)
[2019-01-08] MEDS ORDERED: TRAM50TA2 PO (11:56)
--- NOTE | 2019-01-08 12:03 | DS ---
Date/Time of Note Date/Time of Note DATE: 01/08/19 TIME: 12:01 Discharge Summary Admission/Discharge Info Admit Date/Time Dec 29, 2018 at 18:08 Discharge Date/Time Discharge Diagnosis 1. Sickle cell anemia w/pain syndrome 2. Asthma 3. GERD 4. Locked Jaw ,likely Reglan. Patient Condition: Stable Consults Dr. Crain, paint mixer Procedures 01/07/2019. EGD. EGD 01/07/19 EGD relatively normal, nonspecific findings Biopsies taken to rule out microscopic pathology Pyrosis Hospital Course 23-year-old female with sickle cell anemia, admitted with pain. Patient's pain was managed with Dr. Crain. During the course of hospitalization, patient was also noted with bargaining behaviors for pain meds. She also required CELL STRIPPER FINAL pain control. Patient's hemoglobin remained stable at her baseline. She did not have any chest pain or other symptoms. Patient's hospitalization was also noted for nausea and vomiting likely GERD versus morphine induced. Patient also underwent EGD which was unremarkable. She was continued on empiric Protonix as well. Patient was also noted with Reglan side effect with lockjaw which was treated with IV Benadryl. At this time, patient is feeling back to her baseline. Her pain is well controlled. Patient is medically stable for discharge with outpatient follow-up. She was given discussion for tramadol until she is seen her primary care physician for further outpatient management. Approximately 60 m spent on coordinating the discharge on this patient. Patient was seen in collaboration with Dr. Ma. Home Meds Active Scripts Pantoprazole* (Protonix*) 40 Mg Tablet., 40 MG PO AC BREAKFAST, #30 TAB Prov:SANDY VINES NP 01/08/19 Follow-up Plan Follow-up with your primary care physician in 1 week Primary Care Provider Not On Staff Doctor SANDY VINES NP Jan 08, 2019 12:03
[2019-01-08 12:29] VITALS: BP 146/99; PULSE 109; RESP 18
[2019-01-08] MEDS: LORAZEPAM 2 MG INJ IV ONE ×2 (12:54→13:27)
[2019-01-08] MEDS ORDERED: DIPHENHYDRAMINE 50 MG INJ IV ONE (13:29)
--- NOTE | 2019-01-08 13:36 | EN ---
Date/Time of Note Date/Time of Note DATE: 01/08/19 TIME: 13:33 Event Note Medicine Medicine Event Note Rapid Response notes Nursing staff called AGRICULTURE TEACHER, as patient appears to have locked jaw. Examined patient at bedside. Able to move all 4 extremities. No vision changes, speech difficulties, numbness, tingling, dizziness, chest pain, nystagmus, headache or others. Patient able to open her mouth, however she feels very tight at the jaw level. There is no tongue deviation either. On review of chart, patient still receiving IV Reglan as she was having nausea and vomiting couple days ago for which she was receiving it. At this time, we feel like this is more likely Reglan induced . Suspicion for having a stroke in this young patient with no risk factors are very low. Recommendation: Stop Reglan now. Will give 1 mg IV Ativan and 25 mg IV Benadryl. We will also obtain a CT brain and carotid ultrasound to rule out other etiologies. If patient feels better and relaxed in the next few hours, she can be discharged home with primary care follow-up. Please note that misti andersen was also evaluated by Dr. Haas and Dr. Crain at bedside. Case discussed with SANDY Hobson NP Jan 08, 2019 13:36
[2019-01-08] MEDS ORDERED: SOD CHLORIDE 0.9% 500 ML IV ONE (14:00)
[2019-01-08 15:07] VITALS: BP 136/85; PULSE 102; RESP 18
== END 2019-01-08 17:00 | disposition home or self-care (01) | DRG 811 ==
LOC: MS1 18:08
PROVIDERS: ADMIT Internal Medicine; ATTEND Internal Medicine
PROC: 0DB68ZX Excision of Stomach, Via Natural or Artificial Opening Endoscopic, Diagnostic (ICD-10-PCS; principal; 2019-01-07 15:30)
DX: D57.00 Hb-SS disease with crisis, unspecified (principal); A35 Other tetanus; K92.0 Hematemesis; E70.8 Other disorders of aromatic amino-acid metabolism; R11.2 Nausea with vomiting, unspecified; K21.9 Gastro-esophageal reflux disease without esophagitis; J45.20 Mild intermittent asthma, uncomplicated; T45.0X5A Adverse effect of antiallergic and antiemetic drugs, initial encounter; Y92.239 Unspecified place in hospital as the place of occurrence of the external cause
CPT/HCPCS: 70450; 71046; 71275; 80048; 80053; 82962; 83036; 83735; 84484; 84703; 85025; 88305; 88312; 93880; 94640; 94664; J1200; J1644; J2060; J2270; J2405; J2543; J2765; J7030; J7040; Q9967